=== PATIENT | male | born 1940 | race Caucasian/White ===

== ENCOUNTER 2016-11-23 12:08 | Observation (INO) ==
[2016-11-23 14:00] LABS: Hemoglobin 6.8 g/dL (12.9-16.9); Monocytes % 11.4 %; Red Cell Distribution Width 18.7 % (11.5-14.5)
[2016-11-23 14:01] LABS: Basophils # 0.1 K/mcL (0.0-0.2); Basophils % 0.9 %; Eosinophils # 0.2 K/mcL (0.0-0.6); Eosinophils % 1.6 %; Hematocrit 26.5 % (37.5-50.1); Immature Granulocytes % 0.8 % (0-4); Lymphocytes # 1.3 K/mcL (0.6-4.6); Lymphocytes % 12.9 %; Mean Corpuscular HGB Conc 25.7 g/dL (31.6-35.5); Mean Corpuscular Hemoglobin 18.1 pg (28.0-33.3); Mean Corpuscular Volume 70.5 fL (83.0-100.0); Mean Platelet Volume 10.6 fL (9.4-12.4); Monocytes # 1.1 K/mcL (0.0-1.3); Neutrophils # 7.1 K/mcL (1.6-8.9); Nucleated Red Blood Cells 0.2 /100 WBC (0); Platelet Count 411 K/mcL (140-400); Red Blood Count 3.76 M/mcL (4.19-5.50); Segmented Neutrophils % 72.4 %
[2016-11-23 14:17] LABS: Alanine Aminotransferase 19 Units/L (0-55); Albumin 3.5 g/dL (3.5-5.0); Alkaline Phosphatase 123 Units/L (38-126); Aspartate Amino Transferase 29 Units/L (5-34); BUN/Creatinine Ratio 16 (6-26); Bilirubin,Total 0.4 mg/dL (0.2-1.2); Blood Urea Nitrogen 21 mg/dL (8-26); Calcium 9.6 mg/dL (8.6-10.8); Carbon Dioxide 26 mEq/L (19-29); Chloride 107 mEq/L (98-109); Globulin 3.6 g/dL (2.4-3.5); Glucose 144 mg/dL (70-99); Osmolality,Calculated 300 (280-300); Potassium 4.4 mEq/L (3.5-4.5); Sodium 142 mEq/L (136-145); Total Protein 7.1 g/dL (6.0-8.3); eGFR For African Americans > 60 (> 60); eGFR For Non-African Americans 51 (> 60)
[2016-11-23 14:28] LABS: Anisocytosis 1+ (Not Present); Hypochromasia Present (Not Present)
--- NOTE | 2016-11-23 14:28 | Emergency Department Note ---
Disposition Clinical Impression: Hepatic metastases Anemia Qualifiers: Anemia type: unspecified type Qualified Code(s): D64.9 - Anemia, unspecified Disposition: Admitted As Inpatient Condition: Fair Time of Disposition: 20:12 General Adult HPI - General Chief complaint: ED Weakness Stated complaint: Low blood count Time Seen by Provider: 11/23/16 14:03 Source: patient Limitations: no limitations Nursing Notes Reviewed: Yes Vital Signs Reviewed: Yes - History of Present Illness HPI Narrative: 2-3 week history of generalized weakness and feeling like he is going to pass out after he stands up. Told to come into emergency department today by his primary care doctor who said his hemoglobin was low. Pain Scale: 0 - Related Data Home Medications Medication Instructions Recorded Confirmed Lisinopril/Hydrochlorothiazide 1 each PO DAILY 06/22/16 11/23/16 [Zestoretic 20-12.5 mg Tablet] Omeprazole [PriLOSEC] 20 mg PO DAILY 06/22/16 11/23/16 Oxybutynin Chloride [Ditropan Xl] 5 mg PO DAILY 11/23/16 11/23/16 metFORMIN [Glucophage] 500 mg PO BIDWM 11/23/16 11/23/16 Allergies Allergy/AdvReac Type Severity Reaction Status Date / Time latex Allergy Rash Verified 11/23/16 12:25 All systems ED: reviewed and negative except as stated. Constitutional: Denies: fever, chills ENT ED: Denies: congestion Cardiovascular: Reports: dyspnea on exertion. Denies: chest pain, palpitations , syncope Respiratory: Denies: cough, dyspnea, wheezes Gastrointestinal: Denies: abdominal pain, nausea, vomiting, diarrhea, hematemesis, melena, hematochezia Genitourinary: Denies: urgency, dysuria, frequency, hematuria Musculoskeletal: Denies: back pain, neck pain, joint swelling Integumentary: Denies: rash, abrasion, lesions Neurological: Denies: headache, weakness, numbness, paresthesias Hematological/Lymphatic: Denies: easy bleeding Past Medical History - Past Medical History Medical history: Reports: diabetes, GERD, hypertension Psychiatric history: Reports: no psych history - Social History Smoking Status: Former smoker Smokeless Tobacco Status: No Alcohol use: Reports: rarely Drug use: Reports: none Physical Exam - General Limitations: no limitations General appearance: alert, in no apparent distress - Head Head exam: atraumatic, normocephalic, normal inspection - Eye Eye exam: Present: normal appearance, PERRL, EOMI. Absent: scleral icterus - ENT ENT exam: normal exam, normal oropharynx, mucous membranes moist - Neck Neck exam: Present: normal inspection, full ROM, trachea midline. Absent: tenderness, meningismus, lymphadenopathy - Chest Chest inspection: Present: normal inspection, symmetric chest wall rise. Absent : tenderness, rash, abscess - Respiratory Respiratory exam: Present: normal lung sounds bilaterally. Absent: respiratory distress, wheezes, accessory muscle use - Cardiovascular Cardiovascular exam: Present: regular rate, normal rhythm, normal heart sounds - Abdominal Exam Abdominal exam: Present: soft, Non-Tender, normal bowel sounds. Absent: tenderness, distention, guarding, rebound, rigidity, organomegaly, Hoover's sign , Rovsing's sign, tenderness at McBurney's Point - Extremities Exam Extremities exam: Present: normal inspection, full ROM, normal capillary refill , pedal edema (Bilaterally.). Absent: tenderness - Back Exam Back exam: Present: normal inspection, full ROM. Absent: tenderness, CVA tenderness (R), CVA tenderness (L) - Neurological Exam Neurological exam: Present: alert, oriented X3 - Psychiatric Psychiatric exam: Present: normal affect, normal mood - Skin Skin exam: Present: warm, dry, intact, normal color. Absent: rash, cyanosis, diaphoresis, erythema, pallor, mottled Course Course Narrative: Male patient presented to emergency department after being called by his primary care physician and told to come in because his hemoglobin was low. The reports she was told that it was around 7. He states he has had a low hemoglobin one other time in 1995. He had diverticulitis at that time and had to have a platelet transfusion. Is reporting increased weakness and dyspnea on exertion over the past 3 weeks. He denies any hematemesis or hematuria hematochezia or melena. He denies any abdominal pain. He states that his abdomen feels as normal to him. He does have a large abdomen however it is not distended it is soft. He denies any liver unction problems. He states he has had a recent prostate surgery over a month ago. He states he has had no issues since then. He does report some mild swelling to his lower extremities that is intermittent. On exam his lung sounds are clear heart tones are normal and his abdomen is soft and nontender. I do not appreciate any organomegaly. However patient is obese and this makes the exam difficult. He does have some mild pedal edema bilaterally. We will get a basic lab workup on patient in a fecal occult blood. He is agreeable to this. - Reevaluation(s) Reevaluation #1: Patient's hemoglobin is 6. He tested positive for a stool occult blood. We will admit patient to the hospital for a blood transfusion and further workup for his GI bleeding. He is agreeable to this. His abdomen is still benign on exam. He still complains of no pain. Time: 15:39 - Consultations Consultation #1: Dr Ochoa accepted Pt in stable condition. Time: 16:19 Vital Signs Temperature 98.7 F 11/23/16 12:21 Pulse Rate 90 11/23/16 12:21 Respiratory Rate 18 11/23/16 12:21 Blood Pressure 160/51 11/23/16 12:21 O2 Sat by Pulse Oximetry 96 11/23/16 12:21 Temperature 98.8 F 11/23/16 19:57 Pulse Rate 87 11/23/16 19:35 Respiratory Rate 18 11/23/16 19:57 Blood Pressure 167/97 11/23/16 19:57 O2 Sat by Pulse Oximetry 97 11/23/16 19:35 Oxygen Delivery Oxygen Delivery Room Air Medical Decision Making - MDM Narrative Medical decision making narrative: spoke with pt about CT 's finding of masses in liver. - Medical Records Medical records reviewed: Yes I reviewed the patient's medical records. - Lab Data Lab results reviewed: Yes I reviewed the patient's lab results. Result diagrams: 11/23/16 13:48 11/23/16 13:48 Lab Results 11/23/16 11/23/16 11/23/16 Range/Units 13:22 13:48 13:48 WBC 9.8 (4.3-11.1) K/mcL RBC 3.76 L (4.19-5.50) M/mcL Hgb 6.8 L (12.9-16.9) g/dL Hct 26.5 L (37.5-50.1) % MCV 70.5 L (83.0-100.0) fL MCH 18.1 L (28.0-33.3) pg MCHC 25.7 L (31.6-35.5) g/dL RDW 18.7 H (11.5-14.5) % Plt Count 411 H (140-400) K/mcL MPV 10.6 (9.4-12.4) fL Immature Gran % 0.8 (0-4) % Seg Neutrophils % 72.4 % Lymphocytes % 12.9 % Monocytes % 11.4 % Eosinophils % 1.6 % Basophils % 0.9 % Neutrophils # 7.1 (1.6-8.9) K/mcL Lymphocytes # 1.3 (0.6-4.6) K/mcL Monocytes # 1.1 (0.0-1.3) K/mcL Eosinophils # 0.2 (0.0-0.6) K/mcL Basophils # 0.1 (0.0-0.2) K/mcL Nucleated RBCs/100 WBC 0.2 H (0) /100 WBC Platelet Estimate Slight increase H (Normal) Hypochromasia Present A (Not Present) Anisocytosis 1+ A (Not Present) Sodium 142 (136-145) mEq/L Potassium 4.4 (3.5-4.5) mEq/L Chloride 107 (98-109) mEq/L Carbon Dioxide 26 (19-29) mEq/L BUN 21 (8-26) mg/dL Creatinine 1.35 H (0.72-1.25) mg/dL Est GFR ( Amer) > 60 (> 60) Est GFR (Non-Af Amer) 51 L (> 60) BUN/Creatinine Ratio 16 (6-26) Glucose 144 H (70-99) mg/dL Calculated Osmolality 300 (280-300) Calcium 9.6 (8.6-10.8) mg/dL Iron 10 L (65-175) mcg/dL % Saturation 2 L (20-55) % Transferrin 340 (174-364) mg/dL Ferritin 8 L (22-275) ng/ml Total Bilirubin 0.4 (0.2-1.2) mg/dL AST 29 (5-34) Units/L ALT 19 (0-55) Units/L Alkaline Phosphatase 123 (38-126) Units/L Troponin I (0-0.03) ng/mL Serum Total Protein 7.1 (6.0-8.3) g/dL Albumin 3.5 (3.5-5.0) g/dL Globulin 3.6 H (2.4-3.5) g/dL Albumin/Globulin Ratio 1.0 L (1.1-2.2) Stool Occult Blood Positive A (Negative) Blood Type Antibody Screen Crossmatch 11/23/16 11/23/16 Range/Units 13:48 15:34 WBC (4.3-11.1) K/mcL RBC (4.19-5.50) M/mcL Hgb (12.9-16.9) g/dL Hct (37.5-50.1) % MCV (83.0-100.0) fL MCH (28.0-33.3) pg MCHC (31.6-35.5) g/dL RDW (11.5-14.5) % Plt Count (140-400) K/mcL MPV (9.4-12.4) fL Immature Gran % (0-4) % Seg Neutrophils % % Lymphocytes % % Monocytes % % Eosinophils % % Basophils % % Neutrophils # (1.6-8.9) K/mcL Lymphocytes # (0.6-4.6) K/mcL Monocytes # (0.0-1.3) K/mcL Eosinophils # (0.0-0.6) K/mcL Basophils # (0.0-0.2) K/mcL Nucleated RBCs/100 WBC (0) /100 WBC Platelet Estimate (Normal) Hypochromasia (Not Present) Anisocytosis (Not Present) Sodium (136-145) mEq/L Potassium (3.5-4.5) mEq/L Chloride (98-109) mEq/L Carbon Dioxide (19-29) mEq/L BUN (8-26) mg/dL Creatinine (0.72-1.25) mg/dL Est GFR ( Amer) (> 60) Est GFR (Non-Af Amer) (> 60) BUN/Creatinine Ratio (6-26) Glucose (70-99) mg/dL Calculated Osmolality (280-300) Calcium (8.6-10.8) mg/dL Iron (65-175) mcg/dL % Saturation (20-55) % Transferrin (174-364) mg/dL Ferritin (22-275) ng/ml Total Bilirubin (0.2-1.2) mg/dL AST (5-34) Units/L ALT (0-55) Units/L Alkaline Phosphatase (38-126) Units/L Troponin I 0.02 (0-0.03) ng/mL Serum Total Protein (6.0-8.3) g/dL Albumin (3.5-5.0) g/dL Globulin (2.4-3.5) g/dL Albumin/Globulin Ratio (1.1-2.2) Stool Occult Blood (Negative) Blood Type O POSITIVE Antibody Screen NEGATIVE Crossmatch See Detail - Radiology Data Radiology results reviewed: Yes I reviewed the patient's radiology results. - EKG Data EKG #1 EKG attestation: Yes I reviewed and interpreted this EKG. EKG results narrative: Sinus rhythm at a rate of 91. NV interval is 171. QRS duration is 93. QT is 365. QTC is 414. No signs of acute ischemia. No significant changes from previous EKG dated Jun 19 2016. Attestation Statement - Attestation Attestation: I examined this patient and my medical decision-making was reviewed with the INDOOR LANDSCAPE ARCHITECT/PA/Advanced Practice Nurse/Resident Physician. I agree with the documented findings, disposition and treatment plan as described except to the extent set forth below. admit transfuse PRBCS
--- NOTE | 2016-11-23 15:53 | Electrocardiograph Report ---
[facility] [employer] Test Date: 2016-11-23 Pat Name: Augustin Hyman Department: 104 Room: Gender: M Curriculum And Assessment Director: [facility] : 1940 Requested By: Sapna See Order Number: [id number] Reading MD: Duke Yun MD Measurements Intervals [place] Rate: 91 P: 51 MT: 171 QRS: 12 QRSD: 93 T: 24 QT: 365 QTc: 414 Interpretive Statements SINUS RHYTHM WITH OCCASIONAL VENTRICULAR PREMATURE COMPLEXES Electronically Signed On 11-23-2016 15:51:49 EDT by Duke Yun MD
[2016-11-23] MEDS ORDERED: Acetaminophen 325 MG TABLET PO PRN (17:52)
[2016-11-23] MEDS ORDERED: Naloxone 0.4 MG/ML INJ IVP PRN (17:52)
--- NOTE | 2016-11-23 17:59 | Internal Med History&Physical ---
Date of Encounter: 11/23/16 Time of Encounter: 17:45 Assessment and Plan (1) Anemia Current visit: Yes Status: Suspected Patient with severe anemia. Possibly from occult GI bleeding. We will transfuse 1 unit of packed red blood cells. Trend H&H. Place patient on PPI. GI consult. Moderate risk for complications due to occult GI bleeding. Patient has history of acute diverticulitis and had bleeding due to diverticulitis during his last episode although this is very uncommon. We will get CT scan of the abdomen and pelvis to look for any acute inflammation. Qualifiers: Anemia type: other cause Other causes of anemia: acute posthemorrhagic Qualified Code(s): D62 - Acute posthemorrhagic anemia (2) Positive occult stool blood test Current visit: Yes Status: Acute Consult GI for further evaluation. Place on PPI. (3) Essential hypertension Current visit: Yes Status: Chronic Blood pressure is currently elevated. Patient is on lisinopril and hydrochlorothiazide. Given his abnormal renal function, we will stop hydrochlorothiazide. Continue lisinopril. We will monitor blood pressure and adjust medications accordingly. (4) Diabetes mellitus, type 2 Current visit: Yes Status: Chronic Monitor blood sugars. Sliding scale insulin. Diabetic diet when patient is able to eat. Qualifiers: Diabetes mellitus complication status: with kidney complications Diabetes mellitus complication detail: with chronic kidney disease Diabetes mellitus terminal makeup operator insulin use: without [place] use Chronic kidney disease stage: stage 3 (moderate) Qualified Code(s): E11.22 - Type 2 diabetes mellitus with diabetic chronic kidney disease; N18.3 - Chronic kidney disease, stage 3 ( moderate) (5) Chronic kidney disease, stage 3 Current visit: Yes Status: Chronic Creatinine is 1.35. Renal function was normal in May. Given history of diabetes, could have underlying chronic kidney disease stage III. Will follow renal function closely. Stop hydrochlorothiazide. Internal Medicine - H&P: HPI Chief complaint: Dizziness, lightheadedness, fatigue Admitted From: Emergency Dept Plans for Post Hospital Care: Home History of present illness: Mr. Hyman is a 76 year old male patient with a history of diverticulosis, benign prostate enlargement, diabetes presented to the ER with complaints dizziness and fatigue that has been going on for the past week. He had gone to his primary care provider who ordered blood work and told him to go to the ER because his hemoglobin levels were low. He denies any chest pain palpitations. Denies any melena or hematochezia. Denies any tiera blood per rectum. He did have a history of prior reading per rectum when he was diagnosed with acute diverticulitis in 1995. At that time he always also having an infection with Escherichia coli. He required blood transfusions and underwent colonoscopy and upper GI endoscopy then. He was found to have some mild esophagitis but no active bleeding. He also underwent a colonoscopy about 5 years back which showed a benign polyp. Past Med Surg Social Fam HX - Past Medical History Attestation: Yes The following information was validated with the patient. Source: patient Medical history: diabetes, GERD, hypertension, other (BPH) Psychiatric history: no psych history - Social History Smoking Status: Former smoker Smokeless Tobacco Status: No Alcohol use: rarely Drug use: none Internal Medicine - H&P: Meds Lisinopril/Hydrochlorothiazide [Zestoretic 20-12.5 mg Tablet] 1 each PO DAILY [History] Omeprazole [PriLOSEC] 20 mg PO DAILY 06/22/16 [History] Oxybutynin Chloride [Ditropan Xl] 5 mg PO DAILY 11/23/16 [History] metFORMIN [Glucophage] 500 mg PO BIDWM 11/23/16 [History] Allergies latex Allergy (Verified 11/23/16 12:25) Rash All Systems PM: A 10-system review of systems was performed and is negative for pertinent findings except as documented above in the HPI. - Constitutional Constitutional: fatigue, no chills, no fever(s), no night sweats - EENT Eyes: no change in vision, no discharge, no pain, no photophobia Ears: no ear discharge, no ear pain, no tinnitus Nose, mouth and throat: no dysphagia, no nasal discharge, no neck pain, no sore throat - Cardiovascular Cardiovascular ROS IM: lightheadedness, no chest pain, no diaphoresis, no dyspnea, no palpitations, no syncope - Respiratory Respiratory: no cough, no dyspnea, no wheezing, no excessive phlegm production - Gastrointestinal Gastrointestinal: no abdominal pain, no diarrhea, no hematemesis, no hematochezia, no melena, no nausea, no vomiting - Musculoskeletal Musculoskeletal ROS IM: no numbness, no tingling - Integumentary Integumentary IM: no rash, no unusual bruising - Neurological Neurological ROS: no confusion, no convulsions, no focal weakness, no numbness, no tingling, no tremor(s) - Constitutional Vitals: Temp Pulse Resp BP Pulse Ox 98.7 F 99 18 132/92 97 11/23/16 12:21 11/23/16 15:49 11/23/16 15:49 11/23/16 15:49 11/23/16 15:49 General appearance: Present: cooperative, A&O X 3, no acute distress, obese, answers questions appropriately - Eye Eye exam: Present: EOMI, PERRL, conjuntiva pink, sclera anicteric - Neck Neck exam general surgery: Present: supple, trachea midline. Absent: lymphadenopathy - Respiratory Respiratory exam: Present: CTAB. Absent: accessory muscle use, rales, rhonchi, wheezes - Cardiovascular Cardiovascular exam: Present: RRR, +S1, +S2. Absent: diastolic murmur, gallop, rubs, systolic murmur - GI/Abdominal GI/Abdominal exam: Present: normal bowel sounds, soft, no peritoneal signs. Absent: distended, tenderness - Extremities Exam Extremities exam: Present: warm, radial pulses palpable and symetrical. Absent : calf tenderness, cyanotic, pedal edema - Neurological Exam Neurological exam: Present: alert, CN II-XII intact, oriented X3, no focal deficits. Absent: facial droop, speech deficit - Skin Skin exam: Present: dry, intact, pallor Internal Med - H&P Results - Labs CBC & Chem 7: 11/23/16 13:48 11/23/16 13:48 - Impressions Impressions Chest X-Ray 11/23/16 13:25 IMPRESSION: No acute process. D/ / Pernell Hoff MD / Pernell Hoff MD Interpreting Provider: Pernell Hoff MD
[2016-11-23] MEDS ORDERED: D5% in Water 1,000 ML IVC PRN (18:06)
[2016-11-23] MEDS ORDERED: Dextrose Gel 15 GM PO PRN ×2 (18:06)
[2016-11-23] MEDS ORDERED: *HR* Dextrose 50 % in Water (Syg) 50 ML SYRINGE IVP PRN (18:06)
[2016-11-23] MEDS ORDERED: 0.9 % Sodium Chloride 1,000 ML IVC SCH (18:15)
[2016-11-23 19:01] LABS: % Iron Saturation 2 % (20-55); Iron 10 mcg/dL (65-175); Transferrin 340 mg/dL (174-364)
[2016-11-23] MEDS ORDERED: 0.9 % Sodium Chloride 250 ML ONE (19:05)
[2016-11-23 19:21] LABS: Ferritin 8 ng/ml (22-275)
[2016-11-23] MEDS: Insulin LISPRO 300 UNITS/3 ML VIAL SQ SCH (21:11)
[2016-11-24 04:31] LABS: Bilirubin,Urine Negative (Negative); Blood,Urine Negative (Negative); Clarity,Urine Clear (Clear); Color,Urine Yellow (Yellow); Glucose,Urine (UA) Normal (Normal); Ketones,Urine Negative (Negative); Leukocyte Esterase,Urine Negative (Negative); Nitrite,Urine Negative (Negative); Protein,Urine Negative (Neg-Trace); Urobilinogen,Urine Normal (Normal)
[2016-11-24 05:18] LABS: Hemoglobin 6.7 g/dL (12.9-16.9); Platelet Count 337 K/mcL (140-400)
[2016-11-24 05:19] LABS: Basophils # 0.1 K/mcL (0.0-0.2); Basophils % 0.9 %; Eosinophils # 0.2 K/mcL (0.0-0.6); Eosinophils % 2.5 %; Hematocrit 24.6 % (37.5-50.1); Immature Granulocytes % 0.5 % (0-4); Lymphocytes % 12.5 %; Mean Corpuscular HGB Conc 27.2 g/dL (31.6-35.5); Mean Corpuscular Hemoglobin 19.1 pg (28.0-33.3); Mean Corpuscular Volume 70.3 fL (83.0-100.0); Mean Platelet Volume 10.7 fL (9.4-12.4); Monocytes % 11.9 %; Neutrophils # 5.8 K/mcL (1.6-8.9); Red Cell Distribution Width 19.3 % (11.5-14.5); Segmented Neutrophils % 71.7 %
[2016-11-24 05:37] LABS: BUN/Creatinine Ratio 20 (6-26); Blood Urea Nitrogen 19 mg/dL (8-26); Calcium 8.6 mg/dL (8.6-10.8); Carbon Dioxide 27 mEq/L (19-29); Chloride 107 mEq/L (98-109); Glucose 112 mg/dL (70-99); Osmolality,Calculated 295 (280-300); Potassium 3.8 mEq/L (3.5-4.5); Sodium 141 mEq/L (136-145); eGFR For African Americans > 60 (> 60); eGFR For Non-African Americans > 60 (> 60)
[2016-11-24 05:54] LABS: Hypochromasia Present (Not Present); Platelet Estimate Normal (Normal)
[2016-11-24 05:55] LABS: Anisocytosis 1+ (Not Present); Poikilocytosis 1+ (Not Present)
[2016-11-24 06:06] LABS: Folate 10.9 ng/mL (7.0-31.4)
[2016-11-24] MEDS: Pantoprazole 40 MG VIAL IVP SCH ×2 (06:24→17:50)
[2016-11-24] MEDS: Insulin LISPRO 300 UNITS/3 ML VIAL SQ SCH ×4 (08:44→21:22)
[2016-11-24] MEDS ORDERED: 0.9 % Sodium Chloride 250 ML ONE ×2 (11:50→15:05)
--- NOTE | 2016-11-24 12:46 | Event Note ---
Date of Encounter: 11/24/16 Time of Encounter: 12:45 Chart review, for consult tomorrow. Plan for EGD and colonoscopy tomorrow. Clear liquid diet today, no red or purple. NPO at midnight. If unable tolerate NuLytely please use MiraLAX prep. If not clear by 6 AM, give 2 tap water enemas.
--- NOTE | 2016-11-24 16:05 | Internal Med Progress Note ---
Date of Encounter: 11/24/16 Time of Encounter: 12:30 - Assessment and plan (1) Anemia Current Visit: Yes Status: Acute Assessment and plan: Patient is admitted with acute symptomatic anemia. Baseline hemoglobin noted to be 13.2 6 months ago, currently admitted with hemoglobin of 6.8. Hemoglobin stays at 6.7 despite 1 unit PRBC transfusion. We will transfuse 2 more units PRBC today. Iron profile shows low serum iron and ferritin along with microcytic anemia. Will start ferrous sulfate supplementation. GI consult appreciated, plan for EGD and colonoscopy tomorrow to rule out possible GI malignancy/occult GI bleed. Continue to monitor hemoglobin closely. Moderate risk for complications. Qualifiers: Anemia type: iron deficiency Iron deficiency anemia type: chronic blood loss Qualified Code(s): D50.0 - Iron deficiency anemia secondary to blood loss (chronic) (2) Hepatic metastases Current Visit: Yes Status: Acute Assessment and plan: Hepatic lesions noted on routine imaging, suspicious for metastatic disease. Liver function tests within normal limits. CEA normal. We will await results of colonoscopy. (3) BPH (benign prostatic hyperplasia) Current Visit: Yes Status: Chronic Qualifiers: Lower urinary tract symptom presence: presence of symptoms unspecified Qualified Code(s): N40.0 - Benign prostatic hyperplasia without lower urinary tract symptoms (4) Essential hypertension Current Visit: Yes Status: Chronic Assessment and plan: Blood pressure noted to be well controlled. Continue home medications as needed. (5) Diabetes mellitus, type 2 Current Visit: Yes Status: Chronic Assessment and plan: Accu-Chek blood glucose monitoring with sliding scale insulin. Diabetic diet. Qualifiers: Diabetes mellitus complication status: with unspecified complications Diabetes mellitus [facility] insulin use: without roasterman use Qualified Code( s): E11.8 - Type 2 diabetes mellitus with unspecified complications (6) Chronic kidney disease, stage 3 Current Visit: Yes Status: Ruled-out Assessment and plan: Serum creatinine and GFR noted to be normal today. Likely mild acute kidney injury due to anemia and dehydration. Diuretics and NORBERTO inhibitor have been on hold, will resume tomorrow. - Subjective Interval history: Improving lightheadedness, weakness. No hematemesis, melena or hematochezia. No chest or abdominal pain. - Constitutional Vitals: Temp Pulse Resp BP Pulse Ox 98.0 F 76 16 153/79 95 11/24/16 15:25 11/24/16 15:25 11/24/16 15:25 11/24/16 15:10 11/24/16 15:25 General appearance: Present: A&O X 3, obese, answers questions appropriately - Respiratory Respiratory exam: Present: CTAB. Absent: accessory muscle use, rales, rhonchi, wheezes - Cardiovascular Cardiovascular exam: Present: RRR, +S1, +S2. Absent: diastolic murmur, gallop, rubs, systolic murmur - GI/Abdominal GI/Abdominal exam: Present: normal bowel sounds, soft, no peritoneal signs. Absent: distended, tenderness - Extremities Exam Extremities exam: Present: full ROM, warm, radial pulses palpable and symetrical. Absent: calf tenderness, cyanotic, pedal edema - Neurological Exam Neurological exam: Present: CN II-XII intact, oriented X3, no focal deficits. Absent: pronater drift, facial droop, speech deficit Internal Medicine: Result - Labs CBC & Chem 7: 11/24/16 04:42 11/24/16 04:42 Labs: Short CBC 11/24/16 Range/Units 04:42 WBC 8.1 (4.3-11.1) K/mcL Hgb 6.7 L (12.9-16.9) g/dL Hct 24.6 L (37.5-50.1) % Plt Count 337 (140-400) K/mcL Neutrophils # 5.8 (1.6-8.9) K/mcL BMP 11/24/16 04:42 Sodium 141 Potassium 3.8 Chloride 107 Carbon Dioxide 27 BUN 19 Creatinine 0.95 Glucose 112 H Calcium 8.6 Urine 11/24/16 Range/Units 04:16 Urine Color Yellow (Yellow) Urine Clarity Clear (Clear) Urine pH 6.0 (5.0-8.0) pH Units Ur Specific [place] 1.020 (1.010-1.025) Urine Protein Negative (Neg-Trace) mg/dL Urine Glucose (UA) Normal (Normal) mg/dL Consult Discharge Plan - Plan Referrals: Jarred Stanley MD [Primary Care Provider] - 12/02/16 3:15 pm
[2016-11-24] MEDS ORDERED: SODIUM CHLORIDE/NAHCO3/KCL/PEG 4,000 ML SOLN.RECON PO ONE (17:00)
[2016-11-25] MEDS: Pantoprazole 40 MG VIAL IVP SCH ×2 (06:57→17:36)
[2016-11-25] MEDS: Insulin LISPRO 300 UNITS/3 ML VIAL SQ SCH ×4 (07:35→20:58)
[2016-11-25 07:54] LABS: Basophils # 0.1 K/mcL (0.0-0.2); Basophils % 1.1 %; Eosinophils # 0.1 K/mcL (0.0-0.6); Eosinophils % 1.6 %; Hemoglobin 8.4 g/dL (12.9-16.9); Immature Granulocytes % 0.4 % (0-4); Lymphocytes # 1.1 K/mcL (0.6-4.6); Lymphocytes % 13.1 %; Mean Corpuscular Hemoglobin 20.5 pg (28.0-33.3); Mean Corpuscular Volume 73.2 fL (83.0-100.0); Mean Platelet Volume 10.5 fL (9.4-12.4); Monocytes # 1.1 K/mcL (0.0-1.3); Monocytes % 13.1 %; Neutrophils # 5.7 K/mcL (1.6-8.9); Nucleated Red Blood Cells 0.2 /100 WBC (0); Platelet Count 337 K/mcL (140-400); Red Cell Distribution Width 20.9 % (11.5-14.5); Segmented Neutrophils % 70.7 %
[2016-11-25 07:58] LABS: Anisocytosis 2+ (Not Present); Hypochromasia Present (Not Present); Microcytosis Present (Not Present); Platelet Estimate Normal (Normal)
[2016-11-25] MEDS ORDERED: *HR* Midazolam HCl 5 MG/5 ML VIAL IVP ONE (12:28)
[2016-11-25] MEDS ORDERED: *HR* FentaNYL (PF) 100 MCG/2 ML VIAL ONE (12:29)
[2016-11-25] MEDS: *HR* Midazolam HCl 5 MG/5 ML VIAL IVP PRN ×4 (12:42→13:05)
[2016-11-25] MEDS ORDERED: Simethicone 40 MG/0.6 ML MLS IR ONE (12:42)
[2016-11-25] MEDS ORDERED: Tetracaine/Benzocaine/Butamben 200MG/SPRAY (100SPY/BOT) MM ONE (12:42)
[2016-11-25] MEDS: *HR* FentaNYL (PF) 100 MCG/2 ML VIAL IVP PRN ×3 (12:42→13:04)
--- NOTE | 2016-11-25 13:58 | Internal Med Progress Note ---
Date of Encounter: 11/25/16 Time of Encounter: 10:15 - Assessment and plan (1) Anemia Current Visit: Yes Status: Acute Assessment and plan: Patient is admitted with acute symptomatic anemia. Baseline hemoglobin noted to be 13.2, 6 months ago. Received 3 units PRBC transfusion since admission and hemoglobin stable today, 8.4. Iron profile shows low serum iron and ferritin along with microcytic anemia. Started ferrous sulfate supplementation. GI consult appreciated, plan for EGD and colonoscopy today, will follow-up. Continue to monitor hemoglobin closely. Moderate risk for complications. Qualifiers: Anemia type: iron deficiency Iron deficiency anemia type: chronic blood loss Qualified Code(s): D50.0 - Iron deficiency anemia secondary to blood loss (chronic) (2) Hepatic metastases Current Visit: Yes Status: Acute Assessment and plan: Hepatic lesions noted on routine imaging, suspicious for metastatic disease. Liver function tests within normal limits. CEA normal. We will await results of colonoscopy. (3) BPH (benign prostatic hyperplasia) Current Visit: Yes Status: Chronic Qualifiers: Lower urinary tract symptom presence: presence of symptoms unspecified Qualified Code(s): N40.0 - Benign prostatic hyperplasia without lower urinary tract symptoms (4) Essential hypertension Current Visit: Yes Status: Chronic Assessment and plan: Blood pressure noted to be well controlled. Continue home medications as needed. (5) Diabetes mellitus, type 2 Current Visit: Yes Status: Chronic Assessment and plan: Accu-Chek blood glucose monitoring with sliding scale insulin. Diabetic diet. Qualifiers: Diabetes mellitus complication status: with unspecified complications Diabetes mellitus [facility] insulin use: without petroleum terminal plant operator use Qualified Code( s): E11.8 - Type 2 diabetes mellitus with unspecified complications - Subjective Interval history: No new complaints. No nausea, emesis, abdominal pain. Awaiting EGD and colonoscopy today. - Constitutional Vitals: Temp Pulse Resp BP Pulse Ox 97.9 F 95 16 159/74 96 11/25/16 07:12 11/25/16 13:42 11/25/16 13:42 11/25/16 13:42 11/25/16 13:42 General appearance: Present: A&O X 3, obese, answers questions appropriately - Respiratory Respiratory exam: Present: CTAB. Absent: accessory muscle use, rales, rhonchi, wheezes - Cardiovascular Cardiovascular exam: Present: RRR, +S1, +S2. Absent: diastolic murmur, gallop, rubs, systolic murmur - GI/Abdominal GI/Abdominal exam: Present: normal bowel sounds, soft (Obese), no peritoneal signs. Absent: distended, tenderness Internal Medicine: Result - Labs CBC & Chem 7: 11/25/16 06:07 11/24/16 04:42 Labs: Short CBC 11/25/16 Range/Units 06:07 WBC 8.1 (4.3-11.1) K/mcL Hgb 8.4 L D (12.9-16.9) g/dL Hct 30.0 L (37.5-50.1) % Plt Count 337 (140-400) K/mcL Neutrophils # 5.7 (1.6-8.9) K/mcL Consult Discharge Plan - Plan Referrals: Jarred Stanley MD [Primary Care Provider] - 12/02/16 3:15 pm
--- NOTE | 2016-11-25 16:29 | Gastroenterology Consult Note ---
<Siu,Pernell Gentile - Last Filed: 11/25/16 16:27> Date of Encounter: 11/25/16 Time of Encounter: 11:45 - Assessment and plan (1) Anemia Current Visit: Yes Status: Acute Assessment and plan: Hgb 6.8 on admission and 8.4 this morning. Continue to monitor CBC and transfuse PRBC as needed. Plan for EGD and colonoscopy today. Qualifiers: Anemia type: iron deficiency Iron deficiency anemia type: chronic blood loss Qualified Code(s): D50.0 - Iron deficiency anemia secondary to blood loss (chronic) (2) Positive occult stool blood test Current Visit: Yes Status: Acute (3) Hepatic metastases Current Visit: Yes Status: Acute Assessment and plan: Hepatic lesions noted on imaging suspicious for metastatic disease. CEA normal and CA-19-9 pending. Plan for EGD and colonoscopy today. - Time Spent With Patient Total time spent is greater than 50% in coordination of care (as documented) at patient's floor/unit and/or counseling patient: GI History of Present Illness - Data of Consult Patient: new to practice Consult date: 11/25/16 Requesting Physician: Marie Colvin MD - Consult Narrative Reason for consult: anemia History of present illness: Mr. Hyman is a 76 year old male with PMHx of DM, GERD, HTN, BPH, diverticulosis who presented to the ED with c/o dizziness and fatigue for the past week. He was seen by his PCP and was instructed to report to the ED due to anemia. Hgb 6.8 on admission and this AM Hgb 8.4. He denies fever, chills, chest pain, SOB, abdominal pain, nausea, vomiting, melena, hematochezia. CT A/P shows multiple large low-attenuation masses throughout the liver measuring up to 5.5 cm in diameter, these are most likely loan representative of hepatic metastatic disease. Procedures: Colonoscopy 10/08/2010 Dr. Lim: Diverticulosis sigmoid and descending colon, significant looping of the colon. NSAIDs: None Anticoagulation: None Past Med Surg Social Fam HX - Past Medical History Medical history: diabetes, GERD, hypertension Psychiatric history: no psych history - Social History Smoking Status: Former smoker Smokeless Tobacco Status: No Alcohol use: rarely Drug use: none - Gastrointestinal Gastrointestinal: Present: as per HPI - Constitutional Constitutional: as per HPI - EENT Eyes: as per HPI Ears: Present: as per HPI Nose, mouth and throat: Present: as per HPI - Cardiovascular Cardiovascular ROS: Present: as per HPI - Respiratory Respiratory IM: Present: as per HPI - Genitourinary Genitourinary: Absent: change in color, Urinary frequency - Neurological ROS Neurological GI: Present: as per HPI - Hematologic/Lymphatic Hematologic/Lymphatic pediatric: Present: as per HPI - Musculoskeletal Musculoskeletal ROS GI: Present: as per HPI - Integumentary Integumentary GI: Present: as per HPI - Psychiatric ROS Psychiatric GI: Present: as per HPI - Endocrine Endocrine IM: Present: as per HPI - Constitutional Vitals: Temp Pulse Resp BP Pulse Ox 97.8 F 68 16 136/64 97 11/25/16 15:15 11/25/16 15:15 11/25/16 15:15 11/25/16 15:15 11/25/16 15:15 General appearance: Present: cooperative, A&O X 3, no acute distress, answers questions appropriately - Head Head exam: Present: atraumatic, normocephalic - Eye Eye exam: Present: normal appearance, sclera anicteric - ENT ENT exam: Present: mucous membranes dry - Neck Neck exam general surgery: Present: normal inspection, trachea midline - Respiratory Respiratory exam: Present: CTAB. Absent: rales, rhonchi - Cardiovascular Cardiovascular exam: Present: RRR, +S1, +S2 - GI/Abdominal GI/Abdominal exam: Present: soft, no peritoneal signs. Absent: distended, firm , guarding, tenderness - Rectal Rectal exam: Present: deferred - Extremities Exam Extremities exam: Present: warm - Neurological Exam Neurological exam: Present: no focal deficits - Psychiatric Psychiatric exam: Present: normal affect, normal mood - Skin Skin exam: Present: dry, intact, normal color, warm Results - Labs CBC & Chem 7: 11/25/16 06:07 11/24/16 04:42 Labs: Last Result Calcium 8.6 mg/dL (8.6-10.8) 11/24/16 04:42 Iron 10 mcg/dL (65-175) L 11/23/16 13:48 % Saturation 2 % (20-55) L 11/23/16 13:48 Transferrin 340 mg/dL (174-364) 11/23/16 13:48 Ferritin 8 ng/ml (22-275) L 11/23/16 13:48 Troponin I 0.02 ng/mL (0-0.03) 11/23/16 13:48 Vitamin B12 263 pg/mL (213-816) 11/24/16 04:42 Folate 10.9 ng/mL (7.0-31.4) 11/24/16 04:42 Stool Occult Blood Positive (Negative) A 11/23/16 13:22 Entire Visit Hgb 8.4 g/dL (12.9-16.9) L D 11/25/16 06:07 Hct 30.0 % (37.5-50.1) L 11/25/16 06:07 Ferritin 8 ng/ml (22-275) L 11/23/16 13:48 Total Bilirubin 0.4 mg/dL (0.2-1.2) 11/23/16 13:48 AST 29 Units/L (5-34) 11/23/16 13:48 ALT 19 Units/L (0-55) 11/23/16 13:48 Carcinoembryonic Ag 2.1 ng/mL (0-5.0) 11/24/16 10:03 Folate 10.9 ng/mL (7.0-31.4) 11/24/16 04:42 Consult Discharge Plan - Plan Referrals: Jarred Stanley MD [Primary Care Provider] - 12/02/16 3:15 pm <Johnathon Moore - Last Filed: 11/25/16 18:39> Date of Encounter: 11/25/16 Time of Encounter: 17:45 - Time Spent With Patient Total time spent is greater than 50% in coordination of care (as documented) at patient's floor/unit and/or counseling patient: GI History of Present Illness - Data of Consult Requesting Physician: Marie Colvin MD - Consult Narrative History of present illness: Mr. Hyman is a 76 year old male - Constitutional Vitals: Temp Pulse Resp BP Pulse Ox 97.8 F 68 16 136/64 97 11/25/16 15:15 11/25/16 15:15 11/25/16 15:15 11/25/16 15:15 11/25/16 15:15 Results - Labs CBC & Chem 7: 11/25/16 06:07 11/24/16 04:42 Labs: Last Result Calcium 8.6 mg/dL (8.6-10.8) 11/24/16 04:42 Iron 10 mcg/dL (65-175) L 11/23/16 13:48 % Saturation 2 % (20-55) L 11/23/16 13:48 Transferrin 340 mg/dL (174-364) 11/23/16 13:48 Ferritin 8 ng/ml (22-275) L 11/23/16 13:48 Troponin I 0.02 ng/mL (0-0.03) 11/23/16 13:48 Vitamin B12 263 pg/mL (213-816) 11/24/16 04:42 Folate 10.9 ng/mL (7.0-31.4) 11/24/16 04:42 Stool Occult Blood Positive (Negative) A 11/23/16 13:22 Entire Visit Hgb 8.4 g/dL (12.9-16.9) L D 11/25/16 06:07 Hct 30.0 % (37.5-50.1) L 11/25/16 06:07 Ferritin 8 ng/ml (22-275) L 11/23/16 13:48 Total Bilirubin 0.4 mg/dL (0.2-1.2) 11/23/16 13:48 AST 29 Units/L (5-34) 11/23/16 13:48 ALT 19 Units/L (0-55) 11/23/16 13:48 Carcinoembryonic Ag 2.1 ng/mL (0-5.0) 11/24/16 10:03 CA 19-9 Antigen 10 U/mL (0-37) 11/24/16 10:03 Folate 10.9 ng/mL (7.0-31.4) 11/24/16 04:42 - Attending Attestation I examined this patient and my medical decision-making was reviewed with the DRAINAGE ENGINEER/PA/Advanced Practice Nurse/Resident Physician. I agree with the documented findings, disposition and treatment plan as described except to the extent set forth below.
[2016-11-26 05:24] LABS: Basophils # 0.1 K/mcL (0.0-0.2); Basophils % 0.7 %; Eosinophils # 0.2 K/mcL (0.0-0.6); Eosinophils % 2.5 %; Hematocrit 30.5 % (37.5-50.1); Hemoglobin 8.1 g/dL (12.9-16.9); Immature Granulocytes % 0.5 % (0-4); Lymphocytes % 11.4 %; Mean Corpuscular HGB Conc 26.6 g/dL (31.6-35.5); Mean Corpuscular Hemoglobin 19.8 pg (28.0-33.3); Mean Corpuscular Volume 74.4 fL (83.0-100.0); Mean Platelet Volume 10.4 fL (9.4-12.4); Monocytes % 12.2 %; Platelet Count 332 K/mcL (140-400); Red Cell Distribution Width 21.6 % (11.5-14.5); Segmented Neutrophils % 72.7 %
[2016-11-26 05:54] LABS: Anisocytosis 3+ (Not Present); Hypochromasia Present (Not Present); Microcytosis Present (Not Present); Platelet Estimate Normal (Normal)
[2016-11-26] MEDS: Pantoprazole 40 MG VIAL IVP SCH ×2 (06:06→17:45)
[2016-11-26] MEDS: Insulin LISPRO 300 UNITS/3 ML VIAL SQ SCH ×4 (09:03→21:40)
--- NOTE | 2016-11-26 12:21 | Discharge Summary ---
Date of Encounter: 11/26/16 Time of Encounter: 12:18 - Discharge Diagnosis (1) Anemia Priority: Primary Status: Acute Qualifiers: Anemia type: iron deficiency Iron deficiency anemia type: unspecified iron deficiency Qualified Code(s): D50.9 - Iron deficiency anemia, unspecified (2) Hepatic metastases Priority: Primary Status: Acute (3) BPH (benign prostatic hyperplasia) Priority: Secondary Status: Chronic Qualifiers: Lower urinary tract symptom presence: presence of symptoms unspecified Qualified Code(s): N40.0 - Benign prostatic hyperplasia without lower urinary tract symptoms (4) Essential hypertension Priority: Secondary Status: Chronic (5) Diabetes mellitus, type 2 Priority: Secondary Status: Chronic Qualifiers: Diabetes mellitus complication status: with unspecified complications Diabetes mellitus termite control technician insulin use: without alf use Qualified Code( s): E11.8 - Type 2 diabetes mellitus with unspecified complications - Discharge Medications Prescriptions: Ferrous Sulfate 325 mg PO TIDWM #90 tablet Home Medications: Lisinopril/Hydrochlorothiazide [Zestoretic 20-12.5 mg Tablet] 1 each PO DAILY [History] Omeprazole [PriLOSEC] 20 mg PO DAILY 06/22/16 [History] Oxybutynin Chloride [Ditropan Xl] 5 mg PO DAILY 11/23/16 [History] metFORMIN [Glucophage] 500 mg PO BIDWM 11/23/16 [History] Ferrous Sulfate 325 mg PO TIDWM #90 tablet 11/26/16 [Rx] Allergies/Adverse Reactions: Allergies latex Allergy (Verified 11/23/16 12:25) Rash Date of admission: 11/23/16 17:08 Primary care physician: Jarred Stanley Consults: 11/23/16 18:10 Consult to Gastroenterology [CONS] Routine Consulting Provider: Gastroenterology Milla Reason for Consult: Anemia/ FOBT positive Call Completed: No Discharging clinician: Marie Colvin Anticipated date of discharge: 11/26/16 - Patient Status Condition: Fair - Discharge Instructions Follow Up With: Jarred Stanley MD [Primary Care Provider] - 12/02/16 3:15 pm Hospital course: Mr. Hyman is a 76 year old male - Time Spent with Patient Total time spent providing and/or coordinating discharge services: - Constitutional Vitals: Temp Pulse Resp BP Pulse Ox 98.4 F 72 18 165/79 95 11/26/16 12:02 11/26/16 12:02 11/26/16 12:02 11/26/16 12:02 11/26/16 12:02 General appearance: Present: A&O X 3, obese, answers questions appropriately - VTE Documentation of Mechanical Device: Intermittent pneumatic compression device
--- NOTE | 2016-11-26 17:46 | Internal Med Progress Note ---
Date of Encounter: 11/26/16 Time of Encounter: 12:15 - Assessment and plan (1) Anemia Current Visit: Yes Status: Acute Assessment and plan: Patient is admitted with acute symptomatic anemia. Baseline hemoglobin noted to be 13.2, 6 months ago. Received 3 units PRBC transfusion since admission and hemoglobin stable today, 8.3. Iron profile shows low serum iron and ferritin along with microcytic anemia. Started ferrous sulfate supplementation. GI consulted and patient underwent EGD and colonoscopy, that showed no evidence of active bleeding. Qualifiers: Anemia type: iron deficiency Iron deficiency anemia type: unspecified iron deficiency Qualified Code(s): D50.9 - Iron deficiency anemia, unspecified (2) Hepatic metastases Current Visit: Yes Status: Acute Assessment and plan: Hepatic lesions noted on routine imaging, suspicious for metastatic disease. Liver function tests within normal limits. CEA normal. Colonoscopy showed no evidence of malignancy however cecum could not be appropriately visualized due to excessively looped colon. Due to acute anemia and hepatic lesions, we will consult IR for possible CT-guided biopsy of liver lesion and oncology consult. (3) BPH (benign prostatic hyperplasia) Current Visit: Yes Status: Chronic Qualifiers: Lower urinary tract symptom presence: presence of symptoms unspecified Qualified Code(s): N40.0 - Benign prostatic hyperplasia without lower urinary tract symptoms (4) Essential hypertension Current Visit: Yes Status: Chronic Assessment and plan: Blood pressure noted to be well controlled. Continue home medications as needed. (5) Diabetes mellitus, type 2 Current Visit: Yes Status: Chronic Assessment and plan: Accu-Chek blood glucose monitoring with sliding scale insulin. Diabetic diet. Qualifiers: Diabetes mellitus complication status: with unspecified complications Diabetes mellitus terminal press operator insulin use: without terminal press operator use Qualified Code( s): E11.8 - Type 2 diabetes mellitus with unspecified complications - Subjective Interval history: Reports feeling well. No abdominal pain, dyspnea, vomiting or diarrhea. - Constitutional Vitals: Temp Pulse Resp BP Pulse Ox 98.4 F 72 18 165/79 95 11/26/16 12:02 11/26/16 12:02 11/26/16 12:02 11/26/16 12:02 11/26/16 12:02 General appearance: Present: A&O X 3, obese, answers questions appropriately - Respiratory Respiratory exam: Present: CTAB. Absent: accessory muscle use, rales, rhonchi, wheezes - Cardiovascular Cardiovascular exam: Present: RRR, +S1, +S2. Absent: diastolic murmur, gallop, rubs, systolic murmur - GI/Abdominal GI/Abdominal exam: Present: normal bowel sounds, soft, no peritoneal signs. Absent: distended, tenderness Internal Medicine: Result - Labs CBC & Chem 7: 11/26/16 04:18 11/24/16 04:42 Labs: Short CBC 11/26/16 Range/Units 04:18 WBC 8.3 (4.3-11.1) K/mcL Hgb 8.1 L (12.9-16.9) g/dL Hct 30.5 L (37.5-50.1) % Plt Count 332 (140-400) K/mcL Neutrophils # 6.0 (1.6-8.9) K/mcL - VTE Documentation of Mechanical Device: Intermittent pneumatic compression device Consult Discharge Plan - Plan Referrals: Jarred Stanley MD [Primary Care Provider] - 12/02/16 3:15 pm Prescriptions: Ferrous Sulfate 325 mg PO TIDWM #90 tablet
--- NOTE | 2016-11-26 19:35 | Oncology Inp Consult Note ---
<Suman Odom Jr - Last Filed: 11/26/16 19:29> Date of Encounter: 11/26/16 Time of Encounter: 18:45 Assessment and Plan (1) Hepatic metastases Status: Acute Assessment and plan: This is a very pleasant 76 year old male presenting with symptomatic anemia with PRBCs transfused as inpatient. CT scans showed new liver lesions. No obvious source. He has no prior diagnosis of cancer. His father of pancreatic cancer in his 60s, and he has a daughter with breast cancer, late 40s/age 50 with mastectomy. At age 17, he smoked corn silk, and became very ill with jaundice. His PCP told him that he contracted a bacterial infection that affected his liver. Source could have been bird droppings inside the corn silk. In 1995, patient had bleeding bowels, and was found to have polyps. He had EGD, and was diagnosed with esophageal reflux and placed on PPI for a short time. He has been seeing Dr Reynolds at [facility] for BPH, no previous diagnosis of prostate cancer. He had a laser procedure, and he has been on flomax several times in the past. He has regular checks of PSA and follow ups with Dr. Reynolds. Patient scoped for upper and lower GI as an inpatient by Dr Johnathon Moore. Biopsy results are pending from scopes procedures. If IR can biopsy liver lesions as inpatient, that could be helpful. Patient stated that this procedure was part of discussion of why he has not been discharged today. He was asking about getting a second opinion after he follows up with [facility] for biopsy results. Once medically stable, discharge, and follow up with Dr Jessica Jack as an outpatient for further planning. Dr Jack will assess patient as well. (2) BPH (benign prostatic hyperplasia) Status: Chronic Qualifiers: Lower urinary tract symptom presence: presence of symptoms unspecified Qualified Code(s): N40.0 - Benign prostatic hyperplasia without lower urinary tract symptoms (3) Anemia Status: Acute Qualifiers: Anemia type: iron deficiency Iron deficiency anemia type: unspecified iron deficiency Qualified Code(s): D50.9 - Iron deficiency anemia, unspecified - Data of Consult Patient: new to practice Consult date: 11/26/16 Requesting Physician: Marie Colvin MD Primary Care Provider: Jarred Stanley - Consult Narrative Reason for consult: new liver lesions History of present illness: Mr. Hyman is a 76 year old male admitted to [facility] for symptomatic anemia. On Ct Scans, he was found to have liver lesions, concerning for a malignant process. He has no prior diagnosis of cancer. His father of pancreatic cancer in his 60s, and he has a daughter with breast cancer, late 40s/age 50 with mastectomy. At age 17, he smoked corn silk, and became very ill with jaundice. His PCP told him that he contracted a bacterial infection that affected his liver. Source could have been bird droppings inside the corn silk. In 1995, patient had bleeding bowels, and was found to have polyps. During that same time period he suffered from an e coli infection. He had EGD, and was diagnosed with esophageal reflux and placed on PPI for a short time. He has been seeing Dr Reynolds at [facility] for BPH, no diagnosis of prostate cancer. He had a laser procedure, and he has been on flomax several times in the past. He has regular checks of PSA. Patient scoped for upper and lower GI as an inpatient by Dr Johnathon Moore. Known Freeman's esophagus from . Biopsy results are pending. Oncology team consulted for establishment of care and recommendations. Past Med Surg Social Fam HX - Past Medical History Medical history: diabetes, GERD, hypertension Psychiatric history: no psych history - Social History Smoking Status: Former smoker Smokeless Tobacco Status: No Alcohol use: rarely Drug use: none Medications and Allergies Lisinopril/Hydrochlorothiazide [Zestoretic 20-12.5 mg Tablet] 1 each PO DAILY [History] Omeprazole [PriLOSEC] 20 mg PO DAILY 06/22/16 [History] Oxybutynin Chloride [Ditropan Xl] 5 mg PO DAILY 11/23/16 [History] metFORMIN [Glucophage] 500 mg PO BIDWM 11/23/16 [History] Ferrous Sulfate 325 mg PO TIDWM #90 tablet 11/26/16 [Rx] Allergies latex Allergy (Verified 11/23/16 12:25) Rash Constitutional: Present: fatigue, malaise Genitourinary: urinary incontinence Oncology - Exam - Constitutional Vitals: Temp Pulse Resp BP Pulse Ox 98.4 F 72 18 165/79 95 11/26/16 12:02 11/26/16 12:02 11/26/16 12:02 11/26/16 12:02 11/26/16 12:02 General appearance: cooperative, morbidly obese, no acute distress - Head Head exam: Present: atraumatic, normal inspection - Eye Eye exam: Present: normal appearance, PERRL - ENT ENT exam: Present: mucous membranes moist - Neck Neck exam: Present: full ROM, normal inspection - Respiratory Respiratory exam: Present: CTAB - Cardiovascular Cardiovascular exam: Present: RRR, +S1, +S2 - GI/Abdominal GI/Abdominal exam: Present: rigid, soft - Extremities Exam Extremities exam: Present: full ROM, normal inspection - Neurological Exam Neurological exam: Present: alert, CN II-XII intact, oriented X3, no focal deficits - Psychiatric Psychiatric exam: Present: normal affect, normal mood - Skin Skin exam: Present: dry, intact, warm Oncology - Results - Labs Labs: Short CBC 11/26/16 Range/Units 04:18 WBC 8.3 (4.3-11.1) K/mcL Hgb 8.1 L (12.9-16.9) g/dL Hct 30.5 L (37.5-50.1) % Plt Count 332 (140-400) K/mcL Neutrophils # 6.0 (1.6-8.9) K/mcL Consult Discharge Plan - Plan Referrals: Jarred Stanley MD [Primary Care Provider] - 12/02/16 3:15 pm Prescriptions: Ferrous Sulfate 325 mg PO TIDWM #90 tablet <GueroJessica S - Last Filed: 11/26/16 19:52> Date of Encounter: 11/26/16 - Data of Consult Requesting Physician: Marie Colvin MD Primary Care Provider: Jarred Stanley - Consult Narrative History of present illness: Mr. Hyman is a 76 year old male Oncology - Exam - Constitutional Vitals: Temp Pulse Resp BP Pulse Ox 98.4 F 72 18 165/79 95 11/26/16 12:02 11/26/16 12:02 11/26/16 12:02 11/26/16 12:02 11/26/16 12:02 Oncology - Results - Labs Labs: Short CBC 11/26/16 Range/Units 04:18 WBC 8.3 (4.3-11.1) K/mcL Hgb 8.1 L (12.9-16.9) g/dL Hct 30.5 L (37.5-50.1) % Plt Count 332 (140-400) K/mcL Neutrophils # 6.0 (1.6-8.9) K/mcL - Attending Attestation 1. Multiple hepatic metastasis. CT abdomen and pelvis without contrast 2016 showed multiple liver lesions concerning for metastasis. Largest 5.[address]-guided liver biopsy scheduled for tomorrow EGD colonoscopy 11/25/2069 negative. Pathology from that pending CEA and CA-19-9 negative 2. Benign prostatic hypertrophy post-focal vaporization Dr. Reynolds May 2016. Pathology from prostate was negative for malignancy. He still has enlarged prostate and we will proceed with PSA. 3. Source of primary not clear. Proceed with CT chest with IV contrast. Current creatinine 0.9. He never smoked
[2016-11-27] MEDS: Pantoprazole 40 MG VIAL IVP SCH (05:03)
[2016-11-27 05:47] LABS: INR 1.2; Prothrombin Time 12.7 Seconds (9.4-12.1)
[2016-11-27] MEDS: Insulin LISPRO 300 UNITS/3 ML VIAL SQ SCH ×2 (08:14→11:46)
--- NOTE | 2016-11-27 10:23 | IR Procedure Note ---
Date of procedure: 11/27/16 Consent Obtained: Written consent Timeout: Correct patient and procedure verified, Correct site verified, Time out performed, Skin prep completed Local anesthetic: Lidocaine 1% Indications: Liver masses Procedure Performed: Liver bx Site/Technique: Right hepatic lobe. Triangulation used. Results/Findings: 5 cores with 18g needle Estimated blood loss (cc): 3 Complications: None; Tolerated procedure well Post Procedure Treatment Plan: Monitoring in pts room
--- NOTE | 2016-11-27 11:01 | Event Note ---
Date of Encounter: 11/27/16 Time of Encounter: 10:00 Pt with the liver lesions suspicious for metastatic disease. Colonoscopy up to proximal ascending colon did not show any mass but the cecum could not be examined because of the Very excessive looping and patient resisting scope advancement. If the pathology of the masses are consistent with adenocarcinoma and still there is a high suspicious for colonic cancer then will recommend repeating colonoscopy with and MAC examining his cecum.
--- NOTE | 2016-11-27 11:55 | Discharge Summary ---
Date of Encounter: 11/27/16 Time of Encounter: 11:30 - Discharge Diagnosis (1) Anemia Priority: Primary Status: Acute Qualifiers: Anemia type: iron deficiency Iron deficiency anemia type: unspecified iron deficiency Qualified Code(s): D50.9 - Iron deficiency anemia, unspecified (2) Hepatic metastases Priority: Primary Status: Acute (3) BPH (benign prostatic hyperplasia) Priority: Secondary Status: Chronic Qualifiers: Lower urinary tract symptom presence: presence of symptoms unspecified Qualified Code(s): N40.0 - Benign prostatic hyperplasia without lower urinary tract symptoms (4) Essential hypertension Priority: Secondary Status: Chronic (5) Diabetes mellitus, type 2 Priority: Secondary Status: Chronic Qualifiers: Diabetes mellitus complication status: with unspecified complications 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 Qualified Code( s): E11.8 - Type 2 diabetes mellitus with unspecified complications - Discharge Medications Prescriptions: Ferrous Sulfate 325 mg PO TIDWM #90 tablet Home Medications: Lisinopril/Hydrochlorothiazide [Zestoretic 20-12.5 mg Tablet] 1 each PO DAILY [History] Omeprazole [PriLOSEC] 20 mg PO DAILY 06/22/16 [History] Oxybutynin Chloride [Ditropan Xl] 5 mg PO DAILY 11/23/16 [History] metFORMIN [Glucophage] 500 mg PO BIDWM 11/23/16 [History] Ferrous Sulfate 325 mg PO TIDWM #90 tablet 11/26/16 [Rx] Allergies/Adverse Reactions: Allergies latex Allergy (Verified 11/23/16 12:25) Rash Procedures/tests Complete & Pending: Procedures Performed prior 72 hours Category Date Time Status CT biopsy liver [CT] Routine Cat Scan 11/27/[address] chest w con [CT] Stat Cat Scan 11/26/16 19:49 Completed Date of admission: 11/23/16 17:08 Primary care physician: Jarred Stanley Consults: 11/23/16 18:10 Consult to Gastroenterology [CONS] Routine Consulting Provider: [facility] [place] Reason for Consult: Anemia/ FOBT positive Call Completed: No 11/26/16 12:30 Consult to Oncology [CONS] Routine Consulting Provider: [facility] Reason for Consult: New anemia, hepatic masss, h/o prostate cancer Call Completed: Yes Discharging clinician: Marie Colvin Anticipated date of discharge: 11/27/16 - Patient Status Disposition: Home, Self-Care Condition: Fair Functional capacity at discharge: independent ambulation Overall status at discharge: patient is back to baseline - Discharge Instructions Instructions: Diabetes Mellitus Type 2 in Adults (DC), Chronic Hypertension (DC ), Anemia (GEN) Follow Up With: Jarred Stanley MD [Primary Care Provider] - 12/02/16 3:15 pm - Diet and Activity Activity: resume usual activities as tolerated Diet: diabetic diet, low fat, low cholesterol, low salt diet Hospital course: Mr. Hyman is a 76 year old male with the above medical problems who was admitted with symptomatic anemia. Iron profile showed iron deficiency and he was started on oral ferrous sulfate supplementation. He received PRBC transfusion and his hemoglobin improved and remained stable. Stool occult blood test was positive. GI was consulted and patient underwent EGD and colonoscopy. EGD showed salmon-colored mucosa in the esophagus, nonbleeding nodule in duodenum and large hiatal hernia with no active bleeding. colonoscopy showed sessile nonbleeding polyps in descending colon and rectum, nonbleeding lipoma in the ascending colon and diverticulosis in sigmoid colon; cecum could not be reached due to significant looping of his intestines. CT abdomen/pelvis done in the emergency room showed incidental finding of hepatic lesions suggestive of metastatic disease. Patient underwent CT-guided liver biopsy by interventional radiology with pathology report pending. He was also evaluated by oncology who recommended outpatient follow-up for discussion of biopsy results and further management. He is otherwise medically stable for discharge at this time. - Time Spent with Patient Total time spent providing and/or coordinating discharge services: Greater than 30 minutes (40 min) - Constitutional Vitals: Temp Pulse Resp BP Pulse Ox 98.2 F 73 18 114/68 94 11/27/16 11:10 11/27/16 11:10 11/27/16 11:10 11/27/16 11:10 11/27/16 11:10 General appearance: Present: A&O X 3, obese, answers questions appropriately - Respiratory Respiratory exam: Present: CTAB. Absent: accessory muscle use, rales, rhonchi, wheezes - VTE Documentation of Mechanical Device: Intermittent pneumatic compression device
[2016-11-27 13:47] VITALS: BP 129/62
== END 2016-11-27 14:42 | disposition home or self-care (01) ==
LOC: EMEROO 12:08 → 3ANU 17:08 → SUATTDRO 17:08 → INTOOBSV 17:08 → 3ANU 19:50
PROVIDERS: ADMIT Internal Medicine; ATTEND Internal Medicine

== ENCOUNTER 2017-12-09 08:37 | Inpatient (IN) ==
--- NOTE | 2017-12-09 08:16 | Anesthesia Evaluation PreOp ---
Date of Encounter: 12/09/17 Time of Encounter: 10:01 - Past History Planned Operation: L/S right hemicolectomy possible open Cardiac History: HTN, Hyperlipidemia Pulmonary History: Denies Any Significant HX HUB BANDER History: Denies Any Significant HX Other Medical History: Diabetes Type II Anesthesia History: No Prior Anesthetic Complications, Past Anesthesia ( inguinal hernia, prostate) Alcohol Use: rarely Drug use: none Medications and Allergies Lisinopril/Hydrochlorothiazide [Zestoretic 20-12.5 mg Tablet] 1 each PO DAILY [History] Omeprazole [PriLOSEC] 20 mg PO DAILY 06/22/16 [History] metFORMIN [Glucophage] 500 mg PO BIDWM 11/23/16 [History] Aspirin [Lo-Dose Aspirin EC] 81 mg PO DAILY 12/11/16 [History] Cholecalciferol (D-3) [Vitamin D] 2,000 unit PO DAILY 12/11/16 [History] Multivitamin [Multivitamins] 1 tab PO DAILY 12/11/16 [History] Lidocaine/Prilocaine [Emla] 1 appl TP AD #30 gm 12/31/16 [Rx] Magic Mouthwash 5 ml PO Q4H PRN #240 ml 12/31/16 [Rx] Ondansetron HCl [Zofran] 4 mg PO Q6H PRN #20 tablet 12/31/16 [Rx] Prochlorperazine Maleate [Compazine] 10 mg PO Q6HR PRN #30 tablet 12/31/16 [Rx] Hydrocortisone 2.5% CREAM [Cortaid] 1 appl TP BID #1 tube 04/12/17 [Rx] Loperamide [Imodium] 2 mg PO AD PRN #30 capsule 06/23/17 [Rx] Capecitabine [Xeloda] 4 tab PO BID #112 tablet 07/19/17 [Rx] Trifluridine/Tipiracil HCl [Lonsurf 20 mg-8.19 mg Tablet] 4 tab PO AD #70 tablet 11/15/17 [Rx] 3 Allergy/AdvReac Type Severity Reaction Status Date / Time latex AdvReac Rash Verified 12/09/17 09:57 - Meds/Allergy Pre-op Review Medications Reviewed: Yes Allergies Reviewed: Yes Anesthesia Results - Labs Laboratory Tests 11/24/17 11/30/17 11/30/17 08:28 07:21 07:21 WBC 6.5 D Hgb 12.6 L Hct 40.2 Plt Count 212 PT 11.5 INR 1.0 Sodium 138 Potassium 4.2 Chloride 106 Carbon Dioxide 29 BUN 21 Creatinine 0.78 Est GFR (Non-Af Amer) > 60 - Imaging EKG: report reviewed, image reviewed, other (SINUS RHYTHM WITH OCCASIONAL VENTRICULAR PREMATURE COMPLEXES) Anesthesia Exam Vital Signs/O2 Sat/Glucose, Most Recent Temp Pulse Resp BP Pulse Ox 98.7 F 90 18 96/63 95 12/09/17 09:22 12/09/17 09:22 12/09/17 09:22 12/09/17 09:22 12/09/17 09:22 Blood Glucose* 159 Height: 1.88 m Weight: 94 kg NPO (# of Hours): > 8 hrs - HEENT Pupil (Motor): Pupils equal Mallampati: II Teeth: Normal Oral Opening: Greater than 3 - HUB BANDER LOC: Oriented HUB BANDER Motor: Normal RUE, Normal LUE, Normal RLE, Normal LLE, Normal Face HUB BANDER Sensory: Normal: RUE, LUE, RLE, LLE, Face - Cardiac Rhythm: Regular Murmur: None - Pulmonary Breath Sounds: bilateral Clear Anesthesia Assess/Plan ASA Score: 2 Modified Shamika Scale for Level of Consciousness: Cooperative, oriented, and tranquil Anesthetic Plan: General Monitoring Plan: Standard Monitors Recovery Plan: PACU
[2017-12-09] MEDS ORDERED: CeFAZolin Syr 2,000MG/20 ML 2,000 MG/20 ML SYRINGE IVPB ONE (09:07)
[2017-12-09] MEDS ORDERED: Ringers Solution, Lactated 1,000 ML IVC SCH (09:15)
[2017-12-09] MEDS ORDERED: MetroNIDAZOLE 500 MG/100 ML 500 MG/100 ML BAG IVPB ONE (09:40)
[2017-12-09] MEDS ORDERED: Gabapentin 300 MG CAPSULE PO ONE (09:48)
[2017-12-09] MEDS ORDERED: Famotidine 20 MG/2 ML VIAL IVP ONE (09:48)
[2017-12-09] MEDS ORDERED: Acetaminophen IV 1,000 MG/100 ML INFUS..BTL IVPB ONE (09:48)
--- NOTE | 2017-12-09 09:53 | History & Physical Report ---
Date of Encounter: 12/09/17 Time of Encounter: 09:51 24 Hour HP Update - Instructions Instructions: If the History and Physical is less than 30 days old and was completed prior to A.M. admission and or procedure and has NOT been updated on calendar day of procedure please complete this update prior to performing procedure. - Update Patient reports changes in Medical Condition: No Changes in examination, assessment, or condition: No Changes in Medication: No Preop tests/diagnostics Reviewed: Yes Surgery Remains Indicated: Yes Consent for Planned Operative Procedure(s) Verified: Yes - Pre-Operative Checklist Preoperative Checklist Indicated: Yes Prophylactic Antibiotic Ordered: Yes Home Medications Include Beta Silvana: No Beta Silvana Taken Today (Day of Surgery): No Beta Silvana Taken Yesterday (Day Prior to Surgery): No Is VTE Prophylaxis Indicated?: Yes - Attending Attestation patient seen and examined; patient still reports significant pain along R side; my concern is that is less likely acute appendicitis, but more maligancy invading into the appendiceal orifice; due to tumor burden, as discussed with patient, I will proceed with an open procedure to reduce the amount of time under anesthesia; okay to proceed with surgery
[2017-12-09] MEDS ORDERED: *HR* Promethazine 25 MG/ML VIAL IVP PRN (11:13)
[2017-12-09] MEDS ORDERED: *HR* HYDROmorphone (PF) 1 MG/ML SYRINGE IVP PRN (11:13)
[2017-12-09] MEDS ORDERED: Ondansetron 4 MG/2 ML VIAL IVP ONE (11:13)
[2017-12-09] MEDS ORDERED: Ketorolac 15 MG/ML VIAL IVP ONE (11:13)
[2017-12-09] MEDS ORDERED: Neostigmine Methylsulfate 3 MG/3 ML SYRINGE ONE (11:50)
[2017-12-09] MEDS ORDERED: Lidocaine -MPF 4% 5 ML AMPUL ONE (11:50)
[2017-12-09] MEDS ORDERED: *HR* Morphine 10 MG/ML VIAL ONE (11:50)
[2017-12-09] MEDS ORDERED: *HR* FentaNYL (PF) 100 MCG/2 ML VIAL ONE ×2 (11:50)
[2017-12-09] MEDS ORDERED: Ondansetron 4 MG/2 ML VIAL ONE (11:50)
[2017-12-09] MEDS ORDERED: *HR* Succinylcholine 200 MG/10 ML VIAL IVP ONE (11:50)
[2017-12-09] MEDS ORDERED: *HR* Propofol 200 MG/20 ML VIAL IVP ONE (11:50)
[2017-12-09] MEDS ORDERED: Lidocaine -MPF 2% 2 ML VIAL ONE (11:50)
[2017-12-09] MEDS ORDERED: *HR* Rocuronium Bromide 50 MG/5 ML VIAL ONE (11:50)
[2017-12-09] MEDS ORDERED: Dexamethasone 4 MG/ML VIAL ONE ×2 (11:50→12:16)
[2017-12-09] MEDS ORDERED: ROPIVACAINE HCL/PF 0.5% 30 ML VIAL ONE (11:59)
--- NOTE | 2017-12-09 12:39 | Anesthesia Procedures ---
Date of Encounter: 12/09/17 Time of Encounter: 12:34 Procedures: Anesthesia - Nerve Block Procedure Date: 12/09/17 Time: 12:35 Allergies/Adv Reactions: latex Checklist: Correct Patient Identifier Blood Thinner: No Monitor Applied: EKG, BP, Pulse Oximetry Indication: Post Op Analgesia Pre-op Neuro Deficits: No Block Type: Other (subcostal TAP block bilateral) Catheter placed: No Sterile Technique: Yes Ultrasound used: Yes Anatomy identified: Yes Visual spread of Local: Yes Blood on Needle Aspiration: No Smooth Injection of Local: Yes Pain with Injection of Local: No Prep: Chlorhexadine Needle: 21 x 100 mm Stimuplex Local: Ropivacaine (0.5% 30 cc per side ) Volume (cc): 60 Number of Attempts: 1 Complications: None/effective block Vitals: see anesthesia record. Comments: Per the request of the surgeon for post op pain for exploratory laparotomy. The patient's family was consented while he was under general anesthesia. The subcostal TAP block was performed in sterile manner with 30 cc 0.5% ropivacaine with 4 mg decadron per side for a total of 60 cc. Visual spread of local anesthetic was conducted using ultrasound.
--- NOTE | 2017-12-09 12:54 | Operative Note ---
Date of procedure: 12/09/17 Pre-op diagnosis: stage IV colon cancer, significant RLQ pain Post-op diagnosis: same Procedure: exploratory laparotomy; excision of omentum; lysis of adhesions Implants: none Complications: none Anesthesia: GETA Local Anesthetics: Other (TYREL block) Surgeon: Smith Rivera Was there an assistant basketball coach present: Xena Configuration Management Specialist Other: Gasper Estimated blood loss (cc): 25 Specimen: omentum Condition: stable Disposition: PACU Procedure in Detail: The patient was brought into the operating room suite. The patient was placed in the supine position. Mechanical DVT prophylaxis was initiated. The patient underwent smooth induction of general endotracheal anesthesia. The patient was prepped and draped in the usual fashion. Preoperative antibiotics were given. A timeout was held identifying the correct patient, pathology, and procedure. Everyone was in agreement and we began a procedure. I created a midline incision and entered into the peritoneum with electrocautery. I set up the Book-Rangel self retainer. I started by dissecting proximally on the [place] of toldt. I approoached the mid portion of the ascending colon, I found that I was not able to create a plane to separate the bowel and the abdominal wall.. I attempted the same distally heading proximally at the transverse colon. I was able to create a plane at the hepatic flexure, but I was not able to create a plane to free up the upper third of the ascending colon. There was a length of about 12 cm of adhesed bowel to the abdominal wall that I was not able to free up completely. I was not able to perform a safe operation so the decision was made to conclude the procedure. I closed the abdomen with running PDS suture and stapled the skin closed. The patient tolerated the procedure well and was escorted to PACU in stable condition.
--- NOTE | 2017-12-09 13:04 | Anesthesia Evaluation Post Op ---
Date of Encounter: 12/09/17 Time of Encounter: 13:02 - Vital Signs Vital Signs: Vital Signs/O2 Sat, Most Current Temp Pulse Resp BP Pulse Ox 98.7 F 90 18 96/63 95 12/09/17 09:22 12/09/17 09:22 12/09/17 09:22 12/09/17 09:22 12/09/17 09:22 - Lungs Lungs: Clear Ascult./Percussion - Airway Airway: Non-obstructed - Cardiovascular Regular Rate - Mental Status Mental Status: Alert & Oriented, Answers Appropriately - Pain Pain Scale: 5 (pt states pain is "tolerable") Pain Scale used: Numeric (1 - 10) - Nausea Vomiting Nausea Vomiting: Not Present - Hydration Hydration: NPO, Has not voided Notes: 12/09/17 13:03 pt resting comfortably, denies complaints - Discharge PostOp Status: Transfer Patient to floor
[2017-12-09] MEDS ORDERED: Ondansetron ODT 4 MG TAB.RAPDIS SL PRN (13:51)
[2017-12-09] MEDS: 0.9 % Sodium Chloride 1,000 ML IVC SCH ×2 (14:08→21:31)
[2017-12-09] MEDS ORDERED: traMADol 50 MG TABLET PO PRN (15:00)
[2017-12-09] MEDS: *HR* OxyCODONE Immed Rel 5 MG TABLET PO PRN (15:49)
[2017-12-09] MEDS ORDERED: D5% in Water 1,000 ML IVC PRN (22:16)
[2017-12-09] MEDS ORDERED: Dextrose Gel 15 GM/37.5 ML TUBE PO PRN ×2 (22:16)
[2017-12-09] MEDS ORDERED: *HR* Dextrose 50 % in Water (Syg) 50 ML SYRINGE IVP PRN (22:16)
[2017-12-09] MEDS: Insulin LISPRO 300 UNITS/3 ML VIAL SQ SCH (22:38)
[2017-12-10] MEDS: 0.9 % Sodium Chloride 1,000 ML IVC SCH ×2 (05:33→15:15)
[2017-12-10] MEDS: *HR* OxyCODONE Immed Rel 5 MG TABLET PO PRN (05:34)
[2017-12-10] MEDS: *HR* Enoxaparin 40 MG/0.4 ML SYRINGE SQ SCH (05:34)
--- NOTE | 2017-12-10 08:12 | General Surgery Progress Note ---
Addendum entered and electronically signed by Sidney Strong 12/10/17 13:08: 1:00PM Patient reports no bowel movement, no passing gas, muscle pain, and moderate abdominal pain/discomfort due to distension with burping. Has not eaten yet due to bloating. Given simethicone and acetaminophen. Original Note: <JamesonSalazar W - Last Filed: 12/10/17 09:33> Date of Encounter: 12/10/17 Time of Encounter: 08:10 - Assessment and Plan (1) Status post exploratory laparotomy Current Visit: Yes Status: Acute Patient tolerated procedure well. Surgery was stopped early (see operative note) . trial full diet supportive care and pain management DC hydromorphone continue Tramadol at this time Walk 3 times in the am and 3 times at lunch begin miralax If the patient is able to control his pain and feels comfortable discharge can be considered later today. Subjective Patient reports: no new complaints, pain is less, tolerating liquids well, voiding w/o difficulty, no flatus, no bowel movement, afebrile Narrative: Patient is recovering well from his open abdominal surgery. States there is mild tenderness but it is what he expected. coughing is the only thing that causes significant discomfort. Tolerating liquid diet well and has an appetite. Willing to trial normal diet. Objective Vital Signs - Last 8 Hours Temp Pulse Resp BP Pulse Ox 12/10/17 08:00 98.3 F 80 14 158/81 96 12/10/17 03:59 98.7 F 72 16 144/77 97 Intake and Output 12/09/17 12/10/17 12/10/17 23:59 07:59 15:59 Intake Total 1360 / 1360 1300 / 1300 Output Total 500 / 500 Balance 1360 / 1360 800 / 800 Intake: IV Fluids 1000 / 1000 1000 / 1000 0.9 % Sodium Chloride 1,000 ML 1000 / 1000 1000 / 1000 @ 125 mls/hr IVC .Q8H [facility] Rx#: [id number] Oral 360 / 360 300 / 300 Output: Urine 500 / 500 Other: Meal Dinner Weight 95.5 kg Blood Glucose* 314 Patient Weight 12/10/17 23:59 Weight 95.5 kg - General physical appearance well developed, well nourished, no distress, moderate pain - Eyes normal ocular movement - ENT normal mucosa - Respiratory normal expansion, normal respiratory effort, clear to percussion, clear to auscultation - Cardiovascular Cardiovascular exam: Present: RRR, distant heart sounds - Abdomen Abdomen: Present: bowel sounds present, soft, tender (along incision), surgical scars (clean, dry and intact with mild erythema) - Integumentary no rash, no growths, no abnormal pigmentation - Neurologic CN 2-12 grossly intact - Musculoskeletal normal posture - Psychiatric speech is normal (very talkative), memory intact - VTE Documentation of Mechanical Device: Intermittent pneumatic compression device Consult Discharge Plan - Plan Referrals: Smith Rivera MD [Non-Partnered Physician] - 12/22/17 1:35 pm Jarred Stanley MD [Primary Care Provider] - <Smith Rivera - Last Filed: 12/10/17 16:53> Date of Encounter: 12/10/17 Objective Vital Signs - Last 8 Hours Temp Pulse Resp BP Pulse Ox 12/10/17 15:57 98.1 F 84 16 152/94 95 12/10/17 14:00 96 12/10/17 11:56 98.1 F 100 16 150/89 96 Intake and Output 12/10/17 12/10/17 12/10/17 07:59 15:59 23:59 Intake Total 1300 / 1300 600 / 600 Output Total 500 / 500 0 / 0 Balance 800 / 800 600 / 600 Intake: IV Fluids 1000 / 1000 0.9 % Sodium Chloride 1,000 ML 1000 / 1000 @ 125 mls/hr IVC .Q8H [facility] Rx#: [id number] Oral 300 / 300 600 / 600 Output: Urine 500 / 500 0 / 0 Other: Meal Breakfast Percent of Meal Consumed 95% Weight 95.5 kg Blood Glucose* 210 Patient Weight 12/10/17 23:59 Weight 95.5 kg - Labs 12/10/17 13:59 12/10/17 13:59 Diabetes panel 12/10/17 Range/Units 13:59 Sodium 131 L (136-145) mEq/L Potassium 4.3 (3.5-5.1) mEq/L Chloride 101 (98-107) mEq/L Carbon Dioxide 23 (23-29) mEq/L BUN 19 (8-23) mg/dL Creatinine 0.87 (0.70-1.30) mg/dL Glucose 135 H (70-105) mg/dL Calcium 8.9 (8.6-10.3) mg/dL Calcium panel 12/10/17 Range/Units 13:59 Calcium 8.9 (8.6-10.3) mg/dL Pituitary panel 12/10/17 Range/Units 13:59 Sodium 131 L (136-145) mEq/L Potassium 4.3 (3.5-5.1) mEq/L Chloride 101 (98-107) mEq/L Carbon Dioxide 23 (23-29) mEq/L BUN 19 (8-23) mg/dL Creatinine 0.87 (0.70-1.30) mg/dL Glucose 135 H (70-105) mg/dL Calcium 8.9 (8.6-10.3) mg/dL Adrenal panel 12/10/17 Range/Units 13:59 Sodium 131 L (136-145) mEq/L Potassium 4.3 (3.5-5.1) mEq/L Chloride 101 (98-107) mEq/L Carbon Dioxide 23 (23-29) mEq/L BUN 19 (8-23) mg/dL Creatinine 0.87 (0.70-1.30) mg/dL Glucose 135 H (70-105) mg/dL Calcium 8.9 (8.6-10.3) mg/dL - Attending Attestation patient seen and examined. I have reviewed all labs, imaging and pertinent notes, including this one. I agree with the above following assessment and plan and wish to add the following... 77M POD # 1 s/p ex lap; attempted R cecily for palliation from pain; aborted due to adhesions; now with post operative ileus; CLD only due to distension from ileus; abdomen distended: awaiting flatus; once patient has flatus, then he will be okay for d/c from surg standpoint
[2017-12-10] MEDS: Lisinopril-HCTZ 20-12.5mg TABLET PO SCH (08:42)
[2017-12-10] MEDS: Insulin LISPRO 300 UNITS/3 ML VIAL SQ SCH ×3 (08:45→16:53)
[2017-12-10] MEDS ORDERED: Simethicone 80 MG TAB.CHEW PO PRN (13:02)
[2017-12-10] MEDS ORDERED: Acetaminophen 325 MG TABLET PO PRN (13:03)
[2017-12-10 14:29] LABS: Basophils % 0.1 %; Hematocrit 39.4 % (37.5-50.1); Hemoglobin 12.2 g/dL (12.9-16.9); Immature Granulocytes % 0.7 % (0-4); Lymphocytes # 0.5 K/mcL (0.6-4.6); Lymphocytes % 2.4 %; Mean Corpuscular Hemoglobin 30.4 pg (28.0-33.3); Mean Corpuscular Volume 98.3 fL (83.0-100.0); Monocytes # 2.3 K/mcL (0.0-1.3); Monocytes % 12.6 %; Neutrophils # 15.6 K/mcL (1.6-8.9); Platelet Count 348 K/mcL (140-400); Red Blood Count 4.01 M/mcL (4.19-5.50); Red Cell Distribution Width 17.8 % (11.5-14.5); Segmented Neutrophils % 84.2 %
[2017-12-10 14:51] LABS: BUN/Creatinine Ratio 22 (6-26); Blood Urea Nitrogen 19 mg/dL (8-23); Calcium 8.9 mg/dL (8.6-10.3); Carbon Dioxide 23 mEq/L (23-29); Chloride 101 mEq/L (98-107); Glucose 135 mg/dL (70-105); Osmolality,Calculated 276 (280-300); Potassium 4.3 mEq/L (3.5-5.1); Sodium 131 mEq/L (136-145); eGFR For African Americans > 60 (> 60); eGFR For Non-African Americans > 60 (> 60)
[2017-12-10] MEDS ORDERED: *HR* OxyCODONE Immed Rel 5 MG TABLET PO PRN (14:53)
[2017-12-10] MEDS ORDERED: 0.9 % Sodium Chloride 1,000 ML IVC SCH (15:00)
[2017-12-10] MEDS: Ketorolac 15 MG/ML VIAL IVP SCH (22:21)
[2017-12-11] MEDS: Ketorolac 15 MG/ML VIAL IVP SCH ×4 (03:37→21:27)
[2017-12-11] MEDS: Insulin LISPRO 300 UNITS/3 ML VIAL SQ SCH ×4 (05:10→16:43)
[2017-12-11 06:05] LABS: Basophils % 0.2 %; Eosinophils # 0.1 K/mcL (0.0-0.6); Eosinophils % 0.5 %; Hematocrit 36.4 % (37.5-50.1); Hemoglobin 11.2 g/dL (12.9-16.9); Immature Granulocytes % 0.5 % (0-4); Lymphocytes # 0.6 K/mcL (0.6-4.6); Lymphocytes % 5.1 %; Mean Corpuscular HGB Conc 30.8 g/dL (31.6-35.5); Mean Corpuscular Hemoglobin 30.6 pg (28.0-33.3); Mean Corpuscular Volume 99.5 fL (83.0-100.0); Mean Platelet Volume 11.7 fL (9.4-12.4); Monocytes # 1.6 K/mcL (0.0-1.3); Monocytes % 15.1 %; Neutrophils # 8.4 K/mcL (1.6-8.9); Platelet Count 241 K/mcL (140-400); Red Blood Count 3.66 M/mcL (4.19-5.50); Red Cell Distribution Width 17.8 % (11.5-14.5); Segmented Neutrophils % 78.6 %
[2017-12-11 06:28] LABS: BUN/Creatinine Ratio 23 (6-26); Blood Urea Nitrogen 21 mg/dL (8-23); Carbon Dioxide 27 mEq/L (23-29); Chloride 101 mEq/L (98-107); Glucose 134 mg/dL (70-105); Osmolality,Calculated 283 (280-300); Potassium 4.1 mEq/L (3.5-5.1); Sodium 134 mEq/L (136-145); eGFR For African Americans > 60 (> 60); eGFR For Non-African Americans > 60 (> 60)
[2017-12-11] MEDS: *HR* Enoxaparin 40 MG/0.4 ML SYRINGE SQ SCH (06:44)
[2017-12-11] MEDS: Lisinopril-HCTZ 20-12.5mg TABLET PO SCH (08:33)
[2017-12-11] MEDS: 0.9 % Sodium Chloride 1,000 ML IVC SCH (12:15)
--- NOTE | 2017-12-11 15:09 | General Surgery Progress Note ---
Date of Encounter: 12/11/17 Time of Encounter: 15:07 - Assessment and Plan (1) Status post exploratory laparotomy Current Visit: Yes Status: Acute 77M POD # 2 s/p ex lap; attempted R cecily for palliation from pain; aborted due to adhesions; now with post operative ileus; Patient change to full liquid diet because of concerns of abdominal distention Acute abdominal series ordered to look for air in the stomach Patient did pass a small amount of gas which is encouraging if this continues likely discharge tomorrow She was complaining of gas pains so we will continue the simethicone Order was placed ambulate 3 times a day with assistance Patient was educated and told to let us know that he felt like he needed to vomit to please let us know Subjective Patient reports: no new complaints, feels better, voiding w/o difficulty, flatus , afebrile Narrative: Patient states he is doing well today. Patient noticed his incision leaking slightly early this morning etc. has not been an issue since. Patient still feels bloated however is passed a small amount of gas. Objective Vital Signs - Last 8 Hours Temp Pulse Resp BP Pulse Ox 12/11/17 12:01 98.6 F 84 16 112/74 96 12/11/17 08:45 97 12/11/17 07:50 98.0 F 71 16 126/80 97 Intake and Output 12/10/17 12/11/17 12/11/17 23:59 07:59 15:59 Intake Total 240 / 240 200 / 200 560 / 560 Output Total 550 / 550 325 / 325 250 / 250 Balance -310 / -310 -125 / -125 310 / 310 Intake: Oral 240 / 240 200 / 200 560 / 560 Output: Urine 550 / 550 325 / 325 250 / 250 Other: Meal Dinner Breakfast Percent of Meal Consumed 20% 100% Weight 95.6 kg Blood Glucose* 120 143 142 Patient Weight 12/11/17 23:59 Weight 95.6 kg - General physical appearance well developed, well nourished, no distress - Eyes normal ocular movement - ENT atraumatic, normocephalic, CN 2-12 grossly intact - Neck Neck exam: no masses - Respiratory normal expansion, normal respiratory effort, clear to percussion, clear to auscultation - Cardiovascular Cardiovascular exam: Present: RRR, no murmurs/rubs/gallops - Abdomen Abdomen: Present: bowel sounds present, soft, surgical scars - Incision Incision: Present: clean and dry, intact - Integumentary no rash, no growths, no abnormal pigmentation - Neurologic normal coordination, normal sensation - Musculoskeletal normal gait, normal posture - Psychiatric oriented to time, oriented to person, oriented to place, other (very talkative) - Labs 12/11/17 04:52 12/11/17 04:52 Diabetes panel 12/11/17 Range/Units 04:52 Sodium 134 L (136-145) mEq/L Potassium 4.1 (3.5-5.1) mEq/L Chloride 101 (98-107) mEq/L Carbon Dioxide 27 (23-29) mEq/L BUN 21 (8-23) mg/dL Creatinine 0.93 (0.70-1.30) mg/dL Glucose 134 H (70-105) mg/dL Calcium 9.0 (8.6-10.3) mg/dL Calcium panel 12/11/17 Range/Units 04:52 Calcium 9.0 (8.6-10.3) mg/dL Pituitary panel 12/11/17 Range/Units 04:52 Sodium 134 L (136-145) mEq/L Potassium 4.1 (3.5-5.1) mEq/L Chloride 101 (98-107) mEq/L Carbon Dioxide 27 (23-29) mEq/L BUN 21 (8-23) mg/dL Creatinine 0.93 (0.70-1.30) mg/dL Glucose 134 H (70-105) mg/dL Calcium 9.0 (8.6-10.3) mg/dL Adrenal panel 12/11/17 Range/Units 04:52 Sodium 134 L (136-145) mEq/L Potassium 4.1 (3.5-5.1) mEq/L Chloride 101 (98-107) mEq/L Carbon Dioxide 27 (23-29) mEq/L BUN 21 (8-23) mg/dL Creatinine 0.93 (0.70-1.30) mg/dL Glucose 134 H (70-105) mg/dL Calcium 9.0 (8.6-10.3) mg/dL - VTE Documentation of Mechanical Device: Intermittent pneumatic compression device Consult Discharge Plan - Plan Referrals: Smith Rivera MD [Non-Partnered Physician] - 12/22/17 1:35 pm Jarred Stanlye MD [Primary Care Provider] -
[2017-12-12] MEDS: *HR* Enoxaparin 40 MG/0.4 ML SYRINGE SQ SCH (05:44)
[2017-12-12] MEDS: Ketorolac 15 MG/ML VIAL IVP SCH ×4 (05:44→22:15)
[2017-12-12] MEDS: Insulin LISPRO 300 UNITS/3 ML VIAL SQ SCH ×4 (06:44→16:34)
[2017-12-12] MEDS: 0.9 % Sodium Chloride 1,000 ML IVC SCH (07:15)
[2017-12-12] MEDS: Lisinopril-HCTZ 20-12.5mg TABLET PO SCH (07:20)
--- NOTE | 2017-12-12 08:36 | General Surgery Progress Note ---
Date of Encounter: 12/12/17 Time of Encounter: 08:34 - Assessment and Plan (1) Status post exploratory laparotomy Current Visit: Yes Status: Acute 77M POD # 3 s/p ex lap; attempted R cecily for palliation from pain; aborted due to adhesions; now with post operative ileus; Full liquid diet as he did not tolerate solids very well Encourage ambulation 3 times a day with assistance Continue simethicone for gas pains Monitor for bowel movements DVT prophylaxis Continue monitoring in progressing diet slowly with respect to results of acute abdominal series seen below acute abdominal series: 1. Shallow inspiration with mild left basilar atelectasis. 2. Pneumoperitoneum and anterior abdominal wall skin jimi. Recommend correlation with recent surgical intervention. A perforated viscus is not excluded. 3. Nonspecific bowel gas pattern compatible with ileus. Obstruction not excluded. Subjective Patient reports: no new complaints, feels better, tolerating liquids well, voiding w/o difficulty, bowel movement (Small mostly containing mucous), afebrile Narrative: Patient states he is doing well. He was only mild abdominal tenderness. He had a small bowel movement this morning mostly mucus. Passing gas. States the bloating feels less today. Able To urinate without difficulty Objective Vital Signs - Last 8 Hours Temp Pulse Resp BP Pulse Ox 12/12/17 07:07 97.8 F 71 15 115/52 98 12/12/17 04:48 97.9 F 88 16 132/73 96 Intake and Output 12/11/17 12/12/17 12/12/17 23:59 07:59 15:59 Intake Total 1360 / 1360 100 / 100 Output Total 225 / 225 425 / 425 Balance 1135 / 1135 -325 / -325 Intake: Oral 1360 / 1360 100 / 100 Output: Urine 225 / 225 425 / 425 Other: Meal Dinner Percent of Meal Consumed 100% Weight 95.8 kg Blood Glucose* 166 128 Patient Weight 12/12/17 23:59 Weight 95.8 kg - General physical appearance well developed, well nourished, no distress - Eyes normal ocular movement - Neck Neck exam: no masses - Respiratory normal expansion, normal respiratory effort, clear to percussion, clear to auscultation - Cardiovascular Cardiovascular exam: Present: RRR, no murmurs/rubs/gallops - Abdomen Abdomen: Present: bowel sounds present, soft (less bloated than yesterday), tender. Absent: distended, rigid Abdominal Tenderness: diffusely - Neurologic CN 2-12 grossly intact, normal coordination, normal sensation - Musculoskeletal normal gait, normal posture - Psychiatric speech is normal, memory intact - Labs 12/11/17 04:52 12/11/17 04:52 - VTE Documentation of Mechanical Device: Intermittent pneumatic compression device Consult Discharge Plan - Plan Referrals: Smith Rivera MD [Non-Partnered Physician] - 12/22/17 1:35 pm Jarred Stanley MD [Primary Care Provider] -
[2017-12-13] MEDS: 0.9 % Sodium Chloride 1,000 ML IVC SCH (05:15)
[2017-12-13] MEDS: *HR* Enoxaparin 40 MG/0.4 ML SYRINGE SQ SCH (05:15)
[2017-12-13] MEDS: Insulin LISPRO 300 UNITS/3 ML VIAL SQ SCH ×3 (07:24→11:58)
--- NOTE | 2017-12-13 08:58 | General Surgery Progress Note ---
Date of Encounter: 12/13/17 Time of Encounter: 08:54 - Assessment and Plan (1) Status post exploratory laparotomy Current Visit: Yes Status: Acute 77M POD # 4 s/p ex lap; attempted R cecily for palliation from pain; aborted due to adhesions; now with post operative ileus; Add a soft diet on top of his liquid diet If patient tolerates soft diet he may be discharged today on a soft diet which he will continue until follow-up with Dr. Rivera Encourage ambulation 3 times a day with assistance Continue simethicone for gas pains Monitor for bowel movements DVT prophylaxis Stop IV fluids Subjective Narrative: Patient states he is doing well. He has been passing a lot more gas. He feels he urge to have a bowel movement he will sit down but just past gas and a small amount of liquid/mucus. States he feels less bloated. Has not had any nausea or vomiting. Has been tolerating full liquid diet well. Has mild tenderness around his abdominal incision. Objective Vital Signs - Last 8 Hours Temp Pulse Resp BP Pulse Ox 12/13/17 07:06 98.5 F 78 14 128/72 96 12/13/17 04:29 98.1 F 78 16 138/72 98 Intake and Output 12/12/17 12/13/17 12/13/17 23:59 07:59 15:59 Intake Total 520 / 520 0 / 0 240 / 240 Output Total 300 / 300 250 / 250 Balance 520 / 520 -300 / -300 -10 / -10 Intake: Oral 520 / 520 0 / 0 240 / 240 Output: Urine 300 / 300 250 / 250 Other: Meal Dinner Percent of Meal Consumed 100% Weight 96.1 kg Blood Glucose* 135 109 Patient Weight 12/13/17 23:59 Weight 96.1 kg - General physical appearance well developed, well nourished, no distress, severe distress - Eyes normal ocular movement - Neck Neck exam: no masses - Respiratory normal expansion, normal respiratory effort, clear to percussion, clear to auscultation - Cardiovascular Cardiovascular exam: Present: RRR, no murmurs/rubs/gallops - Abdomen Abdomen: Present: bowel sounds present, soft, tender (around incision), surgical scars - Incision Incision: Present: clean and dry, intact - Integumentary no rash, no growths, no abnormal pigmentation - Neurologic normal coordination, normal sensation - Musculoskeletal normal gait, normal posture - Psychiatric oriented to time, oriented to person, oriented to place, speech is normal, memory intact - Labs 12/11/17 04:52 12/11/17 04:52 - VTE Documentation of Mechanical Device: Graduated compression elastic hosiery Consult Discharge Plan - Plan Referrals: Smith Rivera MD [Non-Partnered Physician] - 12/22/17 1:35 pm Jarred Stanley MD [Primary Care Provider] -
[2017-12-13] MEDS: Lisinopril-HCTZ 20-12.5mg TABLET PO SCH (09:11)
[2017-12-13 11:24] VITALS: BP 127/73
--- NOTE | 2017-12-13 13:28 | Discharge Summary ---
<Salazra Barba - Last Filed: 12/13/17 13:26> - NOTES TO OUTPATIENT PROVIDER Notes to Outpatient Provider: On soft diet Orders not resulted at time of discharge: Pending orders 12/09/17 09:13 Red Blood Cells [BBK] Stat Type and Screen [BBK] Stat Date of Encounter: 12/13/17 Time of Encounter: 13:32 - Discharge Diagnosis (1) Status post exploratory laparotomy Priority: Primary Status: Acute Comments: Tolerated surgery well bowel function is recovering Follow up appointment with Dr. Rivera General Surgery Exam Initial Vital Signs Temp Pulse Resp BP Pulse Ox 98.7 F 90 18 96/63 95 12/09/17 09:22 12/09/17 09:22 12/09/17 09:22 12/09/17 09:22 12/09/17 09:22 - General physical appearance well developed, well nourished, no distress - Eyes normal ocular movement - Neck no masses - Respiratory normal expansion, normal respiratory effort, clear to auscultation - Cardiovascular Cardiovascular exam: Present: RRR, no murmurs/rubs/gallops - Abdomen Abdomen general surgery: Present: bowel sounds present, soft, tender (mild tenderness over incision) - Incision Incision: Present: clean and dry, intact - Integumentary Integumentary general surgery: Present: warm and dry, no abnormal pigmentation - Neurologic Present: CN 2-12 grossly intact, normal coordination, normal sensation - Musculoskeletal Present: normal gait, normal posture - Psychiatric Psychiatric general surgery: Present: appropriate, oriented to person, oriented to place, oriented to time, speech is normal, memory intact - Hospital Course Hospital course: Mr. Hyman is a 77 year old male who went into surgery for exploratory laparotomy on 12/09/17. They were several adhesions of the bowel to the abdominal wall several of these were cleared however written any remained surgeon decided to stop the operation he was unsafe to proceed. The patient had a slow return to function of his bowels. He did not tolerate advancement to a normal diet. He was placed on a full liquid diet and advance to a soft diet which he tolerated. The patient has had 2 bowel movements which have mostly been diarrhea. Patient states he is passing lots of gas currently. Throughout the course of his hospital stay patient states he felt significantly less bloated every day. - Time Spent with Patient Total time spent providing and/or coordinating discharge services: - Discharge Medications Prescriptions: Oxycodone HCl/Acetaminophen [Percocet 5-325 mg Tablet] 1 each PO Q6HR PRN 7 Days #28 tablet PRN Reason: Pain Ibuprofen 800 mg PO Q8HR #42 tablet Ondansetron HCl [Zofran] 4 mg PO Q8HR PRN #15 tab PRN Reason: Nausea Docusate [Colace] 100 mg PO BID PRN #30 capsule PRN Reason: Constipation Home Medications: Lisinopril/Hydrochlorothiazide [Zestoretic 20-12.5 mg Tablet] 1 each PO DAILY [History] Omeprazole [PriLOSEC] 20 mg PO DAILY 06/22/16 [History] metFORMIN [Glucophage] 500 mg PO DAILY 11/23/16 [History] Aspirin [Lo-Dose Aspirin EC] 81 mg PO DAILY 12/11/16 [History] Multivitamin [Multivitamins] 1 tab PO DAILY 12/11/16 [History] Docusate [Colace] 100 mg PO BID PRN #30 capsule 12/13/17 [Rx] Ibuprofen 800 mg PO Q8HR #42 tablet 12/13/17 [Rx] Ondansetron HCl [Zofran] 4 mg PO Q8HR PRN #15 tab 12/13/17 [Rx] Oxycodone HCl/Acetaminophen [Percocet 5-325 mg Tablet] 1 each PO Q6HR PRN 7 Days #28 tablet 12/13/17 [Rx] Allergies/Adverse Reactions: 3 Allergy/AdvReac Type Severity Reaction Status Date / Time latex AdvReac Rash Verified 12/09/17 09:57 Date of admission: 12/09/17 13:29 Primary care physician: Jarred Stanley Discharging clinician: Salazar Barba Anticipated date of discharge: 12/13/17 Labs on day of discharge: Labs from last 24 hours 12/12/17 12/12/17 12/09/17 19:51 16:08 09:13 POC Glucose 135 H 122 H Crossmatch See Detail MTS Gel Crossmatch See Detail - Impressions ITS Impressions Chest/Abdomen X-ray 12/11/17 12:25 IMPRESSION: 1. Shallow inspiration with mild left basilar atelectasis. 2. Pneumoperitoneum and anterior abdominal wall skin jimi. Recommend correlation with recent surgical intervention. A perforated viscus is not excluded. 3. Nonspecific bowel gas pattern compatible with ileus. Obstruction not excluded. The findings were sent to the [facility] at 7:28 pm on 12/11/2017to be communicated to a licensed caregiver. D/ / Jeffry Odom MD / Jeffry Odom MD Interpreting Provider: Jeffry Odom MD - Patient Status Disposition: Home, Self-Care Condition: Good Functional capacity at discharge: independent ambulation Overall status at discharge: patient is progressing back to baseline - Discharge Instructions Follow Up With: Smith Rivera MD [Non-Partnered Physician] - 12/22/17 1:35 pm Jarred Stanley MD [Primary Care Provider] - Jessica Jack MD [Partnered Physician] - 12/20/17 8:15 am (Cancer center called unit with the appoitment. ) Additional Instructions: Remain on soft diet until follow-up appointment with Dr. Rivera. Increase activity as tolerated Call the surgical office if you are unable to pass gas, vomit, developed significant abdominal pain or if you have any other concerns. a)oxycodone/acetaminophen 5/325 mg 1 tab every 6 hours for breakthrough pain only when needed b) ibuprofen 800 mg every 8 hours. do not take with baby aspirin c) Colace 100 mg BID (take while on narcotics; may hold for loose stool) d) Zofran ODT 4 mg up to every 6 hours as needed for nausea - Diet and Activity Activity: increase activity as tolerated Diet: other (soft diet and liquids only until follow up appointment) <Smith Rivera - Last Filed: 12/13/17 14:48> Orders not resulted at time of discharge: Pending orders 12/09/17 09:13 Red Blood Cells [BBK] Stat Type and Screen [BBK] Stat Date of Encounter: 12/13/17 General Surgery Exam Initial Vital Signs Temp Pulse Resp BP Pulse Ox 98.7 F 90 18 96/63 95 12/09/17 09:22 12/09/17 09:22 12/09/17 09:22 12/09/17 09:22 12/09/17 09:22 - Hospital Course Hospital course: Mr. Hyman is a 77 year old male - Time Spent with Patient Total time spent providing and/or coordinating discharge services: Date of admission: 12/09/17 13:29 Primary care physician: Jarred Stanley Labs on day of discharge: Labs from last 24 hours 12/12/17 12/12/17 12/09/17 19:51 16:08 09:13 POC Glucose 135 H 122 H Crossmatch See Detail MTS Gel Crossmatch See Detail - Impressions ITS Impressions Chest/Abdomen X-ray 12/11/17 12:25 IMPRESSION: 1. Shallow inspiration with mild left basilar atelectasis. 2. Pneumoperitoneum and anterior abdominal wall skin jimi. Recommend correlation with recent surgical intervention. A perforated viscus is not excluded. 3. Nonspecific bowel gas pattern compatible with ileus. Obstruction not excluded. The findings were sent to the Radiology Results Communication [facility] at 7:28 pm on 12/11/2017to be communicated to a licensed caregiver. D/ / Jeffry Odom MD / Jeffry Odom MD Interpreting Provider: Jeffry Odom MD - Attending Attestation I have personally seen and examined the patient. I have reviewed pertinent labs , imaging, progress notes, including this one. I agree with the above assessment and plan and wish to include the following... ileus resolved - has return of bowel function plan to follow up in 2 weeks
== END 2017-12-13 16:22 | disposition home or self-care (01) | DRG 336 ==
LOC: SAMDAY 08:37 → 3ANU 13:29
PROVIDERS: ADMIT Surgery; ATTEND Surgery